=== PATIENT | female | born 1955 | race Caucasian/White ===

== ENCOUNTER → 2017-05-23 17:53 | Outpatient (CLI) | payer MEDICARE ==
[2016-08-29 11:54] VITALS: BMI 29.5
[~2017-05-23 17:53] MED LIST: ACCUPRIL40 MG PO; BAYER CHEWABLE81 MG PO; COREG 3.1253.125 MG PO; CYMBALTA60 MG PO; ISOSORBIDE MONO30 M1 PO; JANUMET 50-1,001 TAB PO; JANUMET XR 50-1 EACH PO; LIPITOR80 MG PO; NITROSTAT0.4 MG SL; NORVASC10 MG PO; PEPCID20 MG PO; PLAVIX75 MG PO; PROTONIX40 MG PO; SYNTHROID125 MCG PO
== END | disposition home or self-care (01) ==
LOC: D.LABREF 17:53
PROVIDERS: Family Medicine
DX: M25.50 Pain in unspecified joint (principal); Z13.9 Encounter for screening, unspecified

== ENCOUNTER → 2017-06-10 13:37 | Outpatient (CLI) | payer MEDICARE ==
[2016-08-29 11:54] VITALS: BMI 29.5
== END | disposition home or self-care (01) ==
LOC: D.US 13:37
DX: I65.23 Occlusion and stenosis of bilateral carotid arteries (principal)

== ENCOUNTER → 2017-06-21 08:49 | Outpatient (CLI) | payer MEDICARE ==
[2016-08-29 11:54] VITALS: BMI 29.5
== END | disposition home or self-care (01) ==
LOC: D.CT 08:49
DX: I73.9 Peripheral vascular disease, unspecified (principal)

== ENCOUNTER → 2018-02-14 10:26 | Outpatient (CLI) | payer MEDICARE ==
[2016-08-29 11:54] VITALS: BMI 29.5
== END | disposition home or self-care (01) ==
LOC: D.US 10:26
DX: M79.605 Pain in left leg (principal); M79.604 Pain in right leg; I73.9 Peripheral vascular disease, unspecified

== ENCOUNTER 2018-06-23 19:00 | Outpatient (CLI) | payer MEDICARE ==
[2016-08-29 11:54] VITALS: BMI 29.5
[2018-07-09] MEDS ORDERED: GLUCOPHAGE1000 MG PO (15:37)
[2018-07-12] MEDS ORDERED: LEVSIN/ANASP0.125 MG PO (09:07)
[2018-07-12] MEDS ORDERED: NAPROXEN250 MG PO (09:09)
== END 2018-06-23 23:59 | disposition home or self-care (01) ==
LOC: D.MAMMO 19:00
DX: Z12.31 Encounter for screening mammogram for malignant neoplasm of breast (principal)

== ENCOUNTER → 2019-07-21 14:42 | Outpatient (CLI) | payer OTHER ==
[2018-07-10 16:23] VITALS: BMI 31.8
[~2019-07-21 14:42] MED LIST changes: +GLUCOPHAGE1000 MG PO; +LEVSIN/ANASP0.125 MG PO; +NAPROXEN250 MG PO; +ULTRAM50 MG PO
== END | disposition home or self-care (01) ==
LOC: D.CT 14:42
PROVIDERS: ATTEND Family Medicine
DX: I65.29 Occlusion and stenosis of unspecified carotid artery (principal)

== ENCOUNTER 2019-08-15 13:04 | Emergency (ER) | payer OTHER ==
[~2019-08-15] VITALS: Ht 165.1 cm; Wt 89.1 kg
[~2019-08-15 13:04] MED LIST changes: -ULTRAM50 MG PO
[2019-08-15 13:17] VITALS: Ht 165.1 cm; Wt 89.1 kg
[2019-08-15] MEDS ORDERED: ULTRAM50 MG PO (13:53)
[2019-08-15 14:09] VITALS: BP 148/72
== END 2019-08-15 14:11 | disposition home or self-care (01) ==
LOC: D.ER 13:04
DX: R10.31 Right lower quadrant pain (principal); M79.604 Pain in right leg; I25.10 Atherosclerotic heart disease of native coronary artery without angina pectoris; E11.9 Type 2 diabetes mellitus without complications; I10 Essential (primary) hypertension

== ENCOUNTER → 2019-10-28 09:01 | Outpatient (CLI) | payer OTHER ==
[2019-08-15 13:17] VITALS: BMI 32.6
[~2019-10-28 09:01] MED LIST changes: +ULTRAM50 MG PO
== END | disposition home or self-care (01) ==
LOC: D.CT 09:01
PROVIDERS: ATTEND Family Medicine
DX: I73.9 Peripheral vascular disease, unspecified (principal)

== ENCOUNTER 2019-11-16 11:16 | Outpatient (CLI) | payer OTHER ==
[~2019-11-16] VITALS: Ht 165.1 cm; Wt 94.5 kg
--- NOTE | ~2019-11-16 | HEMODYNAMI ---
PATIENT:DARLENE BRODERICK MEDICAL RECORD: [id number] : 59 LOCATION:[facility] ADMISSION DATE: 11/16/19 Generatedon:11/16/201914:51 Patient name: DARLENE BRODERICK Patient #: [id number] SSN: [id number] : 1955 Date of study: 11/16/2019 Page: Of Hemodynamic Procedure Report Patient Data Patient Demographics Procedure consent was obtained First Name: DARLENE Gender: Female Last Name: MEGGAN : 1955 [facility] Initial: HARDY Age: 64 year(s) Patient #: [id number] Race: SSN: [id number] Additional ID: [id number] Contact details [address]: [address] [place] [address] State: [place] City: [place] Zip code: [address] Past Medical History Allergies Allergen Reaction Date Comments Reported Penicillins 08/10/2019 Admission Admission Data Admission Date: 11/16/2019 Admission Time: 11:16 Procedure Procedure Types Cath Procedure Peripheral Cath Diagnostic Procedure Orthotic Finish Grinding Technician Peripheral Procedures Jmtgu-Uxwycld-Yzz-Off Peripheral vascular Intervention Stent Stent-Fem/Popw/plasty Procedure Description Procedure Date Procedure Date: 11/16/2019 Procedure Start Time: 14:20 Procedure End Time: 14:46 Procedure Staff Name Function Arceino Canchola MD Performing Physician Ruperto Lawrence RT Monitor Jorge Bowman RN Nurse Radha Bartlett RT Scrub Procedure Data Cath Procedure Fluoroscopy Diagnostic fluoroscopy Total fluoroscopy Time: 5.8 time: 5.8 min min Diagnostic fluoroscopy Total fluoroscopy dose: 301 dose: 301 mGy mGy Contrast Material Contrast Material Type Amount (ml) Isovue 370 87 Entry Location Entry Primary Successful Side Size Upsize Upsize Entry Closure Succes sful Closure Location (Fr) 1 (Fr) 2 (Fr) Remarks Device Remarks Femoral Right 5 Fr 6 Fr 6 Fr Exoseal artery Long Short Estimated blood loss: 10 ml Diagnostic catheters Device Type Used For End Catheter Placement DIAGNOSTIC UF 5Fr Procedure catheter ([id number]) Procedure Complications No complications Procedure Medications Medication Administration Route Dosage Oxygen etCO2 Nasal cannula 2 l/min Lidocaine 2% added to field 20 Heparin Flush Bag added to field 2 bags (1000units/500ml NS) 0.9% NaCl I.V. 100 ml/hr Versed I.V. 2 mg Fentanyl I.V. 100 mcg Heparin Bolus I.V. 4000 units Versed I.V. 1 mg Fentanyl I.V. 50 mcg Versed I.V. 1 mg Hemodynamics Rest Heart Rate: 62 (bpm) Snapshots Pre Cath Intra NCS Post Cath Vital Signs Time Heart Resp SPO2 etCO2 NIBP (mmHg) Rhythm Pain Sedation Rate (ipm) (%) (mmHg) Status Level (bpm) 14:09:24 72 27 97 0 167/78(136) NSR 0 (11) 10(A) , No pain 14:13:44 60 15 96 35.2 128/71(104) NSR 0 (11) 10(A) , No pain 14:17:54 66 17 98 38.2 134/79(102) NSR 0 (11) 10(A) , No pain 14:22:08 62 16 94 36.7 107/63(91) NSR 0 (11) 10(A) , No pain 14:26:24 60 14 95 41.1 114/58(89) NSR 0 (11) 9(A) , No pain 14:30:40 78 10 96 40.4 107/68(81) NSR 0 (11) 9(A) , No pain 14:35:35 91 16 100 41.9 168/89(122) NSR 0 (11) 9(A) , No pain 14:39:57 76 18 100 41.1 153/85(121) NSR 0 (11) 9(A) , No pain 14:44:21 75 12 100 40.4 151/76(116) NSR 0 (11) 9(A) , No pain Medications Time Medication Route Dose Verified Delivered Reason Notes Effectiveness by by 14:12:22 Oxygen etCO2 2 Arcenio Otonielie used for Nasal l/min St Steve Bowman admissions supervisor cannula 14:12:29 Lidocaine 2% added 20ml Arcenio Arcenio for local to vial St Steve Canchola anesthetic field MD [facility] 14:12:37 Heparin Flush added 2 Arcenio Buffie used for Bag to bags St Steve Bowman RN procedure (1000units/500ml field NS) 14:12:49 0.9% NaCl I.V. 100 Arcenio Patel Per physician ml/hr St Steve Bowman RN, MD 14:19:27 Versed I.V. 2 mg Arcenio Patel for sedation St Steve Bowman RN, MD 14:19:34 Fentanyl I.V. 100 Arcenio Patel for sedation mcg [facility] Steve Bowman RN, MD 14:25:01 Fentanyl I.V. 50 Arcenio Patel for sedation mcg St Steve Bowman RN, MD 14:25:55 Versed I.V. 1 mg Arcenio Patel for sedation St tSeve Bowman RN, MD 14:28:49 Heparin Bolus I.V. 4000 Arcenio Patel for verif ied units St Steve Bowman RN anticoagulation with dr MD juárez 14:34:43 Versed I.V. 1 mg Arcenio Frederickie for sedation St Steve Bowman RN, MD Procedure Log Time Note 13:45:35 Jorge Bowman RN sent for patient. Start room use. 13:55:31 Procedure Status Elective Heart Cath (OP). 13:55:37 Time tracking: Regular hours (M-F 7:00 - 5:00) 13:55:47 Plan of Care:Hemodynamics will remain stable., Cardiac rhythm will remain stable., Comfort level will be maintained., Respiratory function will remain adequate., Patient/ family verbilizes understanding of procedure., Procedure tolerated without complication., Recovers from procedure without complications.. 13:57:46 Patient received from Pre/Post Procedure Room to CCL 1 Alert and oriented. Tansferred to table in Supine position. 13:58:14 Signed procedure consent form obtained from patient. 13:58:15 Warm blankets applied, and chiquis hugger turned on for patient comfort. 13:58:16 Correct patient and procedure confirmed by team. 13:58:16 ECG and BP/O2 sat monitors applied to patient. 14:08:08 Vital chart was started 14:08:09 Baseline sample Acquired. 14:08:12 Rhythm: sinus rhythm 14:08:13 Full Disclosure recording started 14:08:54 H&P Date Dictated: 11/16/2019 Within 30 days and on chart., New H&P dictated by physician.. 14:08:55 Pre-procedure instructions explained to patient. 14:08:56 Pre-op teaching completed and patient verbalized understanding. 14:09:00 Family in waiting room. 14:09:02 Patient NPO since Midnight. 14:09:04 Is the patient allergic to Iodine/contrast media? No. 14:09:06 Is patient on blood thinner?No 14:09:08 ACC The patient was administered the following blood thiners within the last 24 hours: None 14:09:10 Patient diabetic? Yes. 14:09:11 If diabetic: On Metformin? No 14:09:14 Previous problem with sedation/anesthesia? No ? 14:09:15 Snore? Yes 14:09:16 Sleep apnea? No 14:09:17 Deviated septum? No 14:09:40 Opens mouth fully? Yes 14:09:41 Sticks out tongue? Yes 14:09:50 Airway obstruction? Yes COPD 14:09:52 Dentures? No ? 14:10:03 Pre procedure: right dorsailis pedis pulse 1+ Palpable, but thready & weak; easily obliterated 14:10:05 Pre procedure: left dorsailis pedis pulse 1+ Palpable, but thready & weak; easily obliterated 14:10:07 Patient pain scale 0/10 ?. 14:10:10 IV patent on arrival in left forearm with 0.9% NaCl at [facility]. 14:10:12 Lab results completed and on chart. 14:10:19 Bilateral groins area was prepped with chlora-prep and draped in sterile fashion 14:10:21 Alarms reviewed by R. N. 14:10:22 Sharps counted by scrub and verified by R.N. 14:10:24 Use device set Femoral Dx 14:10:26 Tegaderm 4 x 4 (1626W) opened to sterile field. 14:10:27 ACIST Manifold (50409) opened to sterile field. 14:10:28 ACIST Hand Control (64905) opened to sterile field. 14:10:29 ACIST Syringe (54071) opened to sterile field. 14:10:30 Bag Decanter (2002S) opened to sterile field. 14:10:30 Medline Cath Pack ([id number]) opened to sterile field. 14:10:35 SHEATH 5FR [place] (MFI533) opened to sterile field. 14:10:35 EMERALD Guide Wire (530-297) opened to sterile field. 14:12:22 Oxygen 2 l/min etCO2 Nasal cannula was administered by Jorge Bowman RN; used for procedure; Verbal order read back and verified. 14:12:29 Lidocaine 2% 20ml vial added to field was administered by Arcenio Canchola MD; for local anesthetic; Verbal order read back and verified. 14:12:37 Heparin Flush Bag (1000units/500ml NS) 2 bags added to field was administered by Jorge Bowman RN; used for procedure; Verbal order read back and verified. 14:12:49 0.9% NaCl 100 ml/hr I.V. was administered by Jorge Bowman RN; Per physician; Verbal order read back and verified. 14:19:17 Physician arrived 14:19:20 --------ALL STOP TIME OUT------ 14:19:21 Final Timeout: patient, procedure, and site verified with staff and physician. All members of the team are in agreement. 14:19:23 Bilateral groins site verified by team. 14:19:27 Versed 2 mg I.V. was administered by Jorge Bowman RN; for sedation; Verbal order read back and verified. 14:19:27 Fire Safety Assessment: A--An alcohol-based skin anteseptic being used preoperatively., C--Open oxygen or nitrous oxide is being used., D--An ESU, laser, or fiber-optic light is being used. 14:19:31 Physical assessment completed. ASA score P 2 - A patient with mild systemic disease as per Arcenio Canchola MD. 14:19:34 Fentanyl 100 mcg I.V. was administered by Jorge Bowman RN; for sedation; Verbal order read back and verified. 14:19:35 Sedation plan: IV Moderate Sedation Medication:Versed, Fentanyl 14:20:12 3b) 30-44 Moderately reduced kidney function. 14:20:23 Maximum allowable contrast dose (3.7 X eGFR X 0.75)111 ml. 14:20:28 Procedure started. 14:20:32 Local anesthetic to right femoral artery with Lidocaine 2% by Arcenio Canchola MD.INITIAL ACCESS ONLY 14:23:01 A 5 Fr sheath was inserted into the Right Femoral artery 14:23:06 A DIAGNOSTIC UF 5Fr catheter ([id number]) was advanced over the wire and used for Procedure. 14:24:50 Abdominal angiogram w/ runoff was performed. 14:24:52 Left leg runoff performed. 14:24:54 Right leg runoff performed. 14:25:01 Fentanyl 50 mcg I.V. was administered by Jorge Bowman RN; for sedation; Verbal order read back and verified. 14:25:55 Versed 1 mg I.V. was administered by Jorge Bowman RN; for sedation; Verbal order read back and verified. 14:28:26 INFLATOR Merit BasixCompak (PJ0012) opened to sterile field. 14:28:26 SHEATH 6FR [place] (IZD498) opened to sterile field. 14:28:27 EXOSEAL 6Fr (EX600) opened to sterile field. 14:28:28 SHEATH 6FR Destination (RSR01) opened to sterile field. 14:28:49 Heparin Bolus 4000 units I.V. was administered by Jorge Bowman RN; for anticoagulation; verified with dr juárez Verbal order read back and verified. 14:28:58 GLIDE WIRE Super Stiff Angled 260cm (KG9283) opened to sterile field. 14:29:18 Glidewire advance around the horn and down the left leg. 14:29:29 Catheter exchanged over wire. 14:29:35 Sheath upsized to a 6 Fr Long. 14:30:39 Sheath advanced around the horn. 14:34:43 Versed 1 mg I.V. was administered by Jorge Bowman RN; for sedation; Verbal order read back and verified. 14:38:11 SMART 6 X 40 X 120 stent ([id number]) was deployed across Mid Superficial Femoral, Left . 14:38:22 Stent catheter was removed intact over wire. 14:39:55 Inflate balloon Inflation number: 1 A POWERFLEX PRO 6.0 X 20 X 135 balloon ([id number]) was prepped and advanced across the Mid Superficial Femoral, Left , then inflated to 10 CODY for 0:10 (min:sec) . 14:42:23 Balloon removed over the wire. 14:43:02 Sheath upsized to a 6 Fr Short. 14:43:23 Wire removed. 14:43:31 Sheath removed intact; hemostasis achieved with Exoseal to the Right Femoral artery. 14:43:36 Procedure ended.(Physican Out) 14:44:37 Fluoroscopy time 05.80 minutes. 14:44:41 Fluoroscopy dose: 301 mGy 14:44:41 Flurop Dose total: 301 14:44:45 Dose Area Product 94923 mGy/cm. 14:44:50 Contrast amount:Isovue 370 87ml. 14:44:53 Maximum allowable dose exceeded? No. 14:44:54 Sharps counted by scrub and verified by R.N. 14:44:55 Insertion/operative site no bleeding no hematoma. 14:44:59 Post-op/insertion site Right Femoral artery dressed using a 4 x 4 and Tegaderm. 14:44:59 Post Procedure Pulses reassessed and unchanged 14:45:02 Post-procedure physical assessment completed. ASA score P 2 - A patient with mild systemic disease as per Arcenio Canchola MD. 14:45:04 Post procedure rhythm: unchanged. 14:45:06 Estimated blood loss: 10 ml 14:45:09 Post procedure instruction explained to patient.Patient verbalizes understanding. 14:45:10 Patient needs reinforcement of post procedure teaching. 14:45:10 Procedure and supply charges have been captured, reviewed, submitted and are correct. 14:45:30 Procedure type changed to Cath procedure, Peripheral Cath Diagnostic Procedure, Orthotic Finish Grinding Technician Peripheral Procedures, Gtfor-Hcqzqlx-Tru-Off, Peripheral vascular Intervention, Stent, Stent-Fem/Popw/plasty 14:45:37 Procedure Complication : No complications 14:46:12 Vital chart was stopped 14:46:15 AFRO Findings: PVD: HAZ TECH performed (see procedure notes) 14:46:16 See physician's report for complete and final results. 14:46:16 Operative report dictated upon procedure completion. 14:46:22 Report given to Pre/Post Procedure Room. 14:46:25 Patient transfered to Pre/Post Procedure Room with Stretcher. 14:46:28 Procedure ended. 14:46:28 Full Disclosure recording stopped 14:47:31 ACT drawn and resulted at 230 seconds. (normal therapeutic range 180-240 seconds). 14:48:40 End room use (Document Last) 14:49:03 End room use (Document Last) 14:50:26 End room use (Document Last) Intervention Summary Intervention Notes Time ActionType Lesion and Equipment Action# Pressure Duration Attributes Used 14:38:11 Deploy self Mid SMART 6 X 1 expanding Superficial 40 X 120 stent Femoral, stent Left ([id number]) 14:39:55 Inflate Mid POWERFLEX 1 10 00:10 balloon Superficial PRO 6.0 X Femoral, 20 X 135 Left balloon ([id number]) Device Usage Item Name Manufacture Quantity Catalog Hospital Part Current Minimal L ot# / Number Charge Number Stock Stock Serial# Code Tegaderm 4 3M 1 1626W [id number] 585907 988581 5 x 4 (1626W) ACIST Acist 1 52851 638019 708635 162986 5 Manifold Medical (56724) Systems Inc ACIST Hand Acist 1 81730 651259 825401 448776 5 Control Medical (01526) Systems Inc ACIST Acist 1 64003 012164 604131 576847 20 Syringe Medical (26835) Systems Inc Bag Microtek 1 2001S 542089 03513 656507 5 Decanter Medical Inc. (2001S) Medline Medline 1 [id number] 479202 31601 356253 5 Cath Pack ([id number]) SHEATH 5FR Terumo 1 MUF327 809497 634654 777049 5 [place] (EMC524) EMERALD Cardinal 1 502-455 547709 901218 793620 5 Guide Wire Health (502-455) DIAGNOSTIC Cardinal 1 814825D3 951401 212269 022032 10 UF 5Fr Health catheter (363928M5) INFLATOR Merit 1 GJ7352 724328 593067 100536 15 [facility] Medical BasixCompak (VF0827) SHEATH 6FR Terumo 1 XUB180 745110 872233 945457 40 [place] (PCU791) EXOSEAL 6Fr Cardinal 1 EX600 826438 543088 701055 10 (EX600) Health SHEATH 6FR Terumo 1 RSR01 001513 34126 858782 5 Destination (RSR01) GLIDE WIRE Terumo 1 UC7229 673962 176020 412502 5 Super Stiff Angled 260cm (CF7412) SMART 6 X Cardinal 1 [id number] 842740 135426 415736 0 1 [id number] 40 X 120 Health stent ([id number]) POWERFLEX Cardinal 1 [id number] 106762 587041 480843 5 PRO 6.0 X Health 20 X 135 balloon ([id number]) Signature Audit [place] Stage Time Signature Unsigned Intra-Procedure 11/16/2019 Ruperto Lawrence 2:49:03 PM RT(R) Intra-Procedure 11/16/2019 Jorge Bowman RN 2:50:26 PM Intra-Procedure 11/16/2019 Arcenio Curiel 2:51:06 PM Steve [facility] [address] [place] [address]
[2019-11-16] MEDS ORDERED: GLUCOTROL XL 1010 MG PO (11:41)
[2019-11-16] MEDS ORDERED: ZOLOFT100 MG PO (11:44)
[2019-11-16] MEDS ORDERED: TIROSINT137 MCG PO (11:45)
[2019-11-16] MEDS ORDERED: ATARAX 25 MG TA25 MG PO (11:46)
[2019-11-16 11:51] VITALS: BP 171/62; Ht 165.1 cm; Wt 94.5 kg
[2019-11-16 12:02] LABS: BASOPHILS 0.3 % (0-2); EOSINOPHILS 3.3 % (0-7); HEMOGLOBIN 11.9 g/dL (12-16); IMMATURE GRANULOCYTES 0.4 % (0-5); LYMPHOCYTES 14.5 % (15-50); MCH 28.2 pg (26.0-34.0); MCHC 33.1 g/dL (31.0-37.0); MCV 85.3 fL (80.0-100.0); MEAN PLATELET VOLUME 9.4 fL (7.4-10.4); MONOCYTES 7.9 % (2-11); NEUTROPHILS 73.6 % (40-80); RBC 4.22 10x6/uL (4.00-5.40); RDW 13.1 % (11.5-14.5); WBC 6.7 10x3/uL (4.8-10.8)
[2019-11-16 12:04] LABS: PLATELET COUNT 207 10x3/uL (130-400)
[2019-11-16 12:17] LABS: ANION GAP 13.9 mmol/L (8-16); CALCIUM 8.8 mg/dL (8.5-10.1); CARBON DIOXIDE 25.5 mmol/L (21.0-32.0); CREATININE - SERUM 1.4 mg/dL (0.6-1.3); POTASSIUM - SERUM 4.4 mmol/L (3.5-5.1)
--- NOTE | 2019-11-16 15:08 | HP ---
PATIENT: DARLENE BRODERICK MEDICAL RECORD: [id number] ACCOUNT: [id number] LOCATION:[facility] : 59 ADMISSION DATE: 11/16/19 PCP: CONCHA ANTHONY DO HISTORY AND PHYSICAL EXAMINATION HISTORY OF PRESENT ILLNESS: A 64-year-old lady well known to me with history of coronary artery disease, status post intervention, has been managed with a combination of beta blockade and long-acting nitrates and more recently has been having severe lifestyle coronary claudication, found to have significant disease via CTA, was brought in for a possible intervention. PAST MEDICAL HISTORY: 1. History of hypertension. 2. Hyperlipidemia. 3. Coronary artery disease as described above. 4. Diabetes mellitus. PHYSICAL EXAMINATION: GENERAL: Pleasant female, in no acute distress. NECK: No JVD or bruit. HEART: Regular. LUNGS: Acevedo clear. ABDOMEN: Soft, nontender. EXTREMITIES: Pulses are decreased bilaterally. No edema. IMPRESSION: Severe lifestyle limiting claudication and known diabetic, angiography, intervention based on the above. TRANSINT:[id number] Voice Confirmation ID: [id number] DOCUMENT ID: [id number] INGRID RAZA MD at 1508 CC: [id number] DICTATION DATE: 11/16/19 1311 STEAMBLASTER: 11/16/19 1412 REG [facility] [address] [place] [address]
--- NOTE | 2019-11-16 15:12 | NUR ---
PT ARRIVED BY STRETCHER. PLACED ON MONITORS. IN SUPINE POSITION. FAMILY AT BEDSIDE. VSS.
--- NOTE | 2019-11-16 15:30 | NUR ---
RIGHT GROIN DRESSING C/D/I. NO S/S OF HEMATOMA NOTED. CALL LIGHT WITHIN REACH. FAMILY AT BEDSIDE. VSS AT THIS TIME.
--- NOTE | 2019-11-16 16:00 | NUR ---
RIGHT GROIN DRESSING C/D/I. NO S/S OF HEMATOMA NOTED. CALL LIGHT WITHIN REACH. VSS AT THIS TIME. FAMILY AT BEDSIDE. NO NEEDS AT THIS TIME.
--- NOTE | 2019-11-16 16:35 | NUR ---
RIGHT GROIN DRESSING C/D/I. NO S/S OF HEMATOMA NOTED. CALL LIGHT WITHIN REACH. VSS. FAMILY AT BEDSIDE.
--- NOTE | 2019-11-16 17:00 | NUR ---
PT RESTING COMFORTABLY. VSS. RIGHT GROIN DRESSING C/D/I. NO S/S OF HEMATOMA NOTED. CALL LIGHT WITHIN REACH. FAMILY AT BEDSIDE. NO NEEDS AT THIS TIME.
--- NOTE | 2019-11-16 17:30 | NUR ---
RIGHT GROIN DRESSING C/D/I. NO S/S OF HEMATOMA NOTED. CALL LIGHT WITHIN REACH. FAMILY AT BEDSIDE. VSS.
--- NOTE | 2019-11-16 18:00 | NUR ---
HEAD OF BED INC TO 30 DEGREES. TOLERATED WELL. RIGHT GROIN DRESSING C/D/I. NO S/S OF HEMATOMA NOTED. CALL LIGHT WITHIN REACH. FAMILY AT BEDSIDE. PT SET UP WITH SANDWICH TRAY AND DRINK. DENIES NAUSEA/PAIN AT THIS TIME.
--- NOTE | 2019-11-16 18:45 | NUR ---
RIGHT GROIN DRESSING C/D/I. NO S/S OF HEMATOMA NOTED. PIV D/C'D WITH CATH TIP INTACT. TOLERATED WELL. DISCUSSED DISCHARGE INSTRUCTIONS WITH PT AND PT'S FAMILY. THEY VOICED UNDERSTANDING. PT INSTRUCTED TO GET UP AND DRESSED. FAMILY AT BEDSIDE TO ASSIST. CALL LIGHT WITHIN REACH.
--- NOTE | 2019-11-16 19:00 | NUR ---
PT AMBULATED TO RESTROOM. VOIDED WITHOUT DIFFICULTY. PT TAKEN OUT TO VEHICLE BY WHEELCHAIR. NO S/S OF DISTRESS NOTED. ALL BELONGINGS AND PAPERWORK IN HAND.
--- NOTE | 2019-11-18 10:02 | OP ---
PATIENT NAME: DARLENE BRODERICK MEDICAL RECORD: [id number] :[birth year] LOCATION:D.CAT ADMISSION DATE: SURGEON: INGRID RAZA MD DATE OF OPERATION: 11/16/2019 PROCEDURES: AFRO and TAR HEATER. CATHETER: #5 [place] sheath, 6 long Arrow sheath, Glidewire, and JONE catheter. FINDINGS: The catheter placed at the level of the renal arteries and abdominal aortogram was performed that showed no dissection. No significant aneurysmal dilatation. Nonselective films of the renal artery showed no significant renal artery stenosis. Left lower extremity: Left iliac system, common external and internal, show calcification along several areas but no significant intraluminal stenosis. Left femoral system, deep and common, no significant stenosis. Left superficial femoral at its mid portion shows about 90% fairly discrete stenosis. There is a good 3-vessel runoff. Right lower extremity: Right common internal and external iliacs, relatively free of disease. The femoral system, the left superficial femoral shows a discrete proximal 80% stenosis but then distally has this prolonged 80% stenosis, probably close to 100 mm in length but still with 3-vessel runoff. ASSESSMENT AND PLAN: Intervention to the left superficial femoral today with a stent to the right at a later date. DESCRIPTION OF PROCEDURE: After the glidewire was placed through the 80% to 90% stenosed left superficial femoral area, stent deployed was a 6.0 x 40 mm SMART stent. Post-deployment balloon was a 6.0 x 20 mm ballooned up to 14 atmospheres. This showed excellent resolution to no significant residual and improved distal 3-vessel runoff. Sheath was closed to ExoSeal device. Plavix was loaded in the lab. TRANSINT:[id number] Voice Confirmation ID: [id number] DOCUMENT ID: [id number] INGRID RAZA MD at 1002 CC: [id number] DICTATION DATE: 11/16/19 1454 SYSTEMS INTEGRATOR: 11/16/19 2146 DEP CLI 11/16/[address] [address]
== END 2019-11-16 19:00 | disposition home or self-care (01) ==
LOC: D.CATH 11:16
PROVIDERS: ATTEND Internal Medicine Interventional Cardiology
DX: I73.9 Peripheral vascular disease, unspecified (principal); I25.10 Atherosclerotic heart disease of native coronary artery without angina pectoris; E78.5 Hyperlipidemia, unspecified; R01.1 Cardiac murmur, unspecified; K21.9 Gastro-esophageal reflux disease without esophagitis; E11.9 Type 2 diabetes mellitus without complications; I10 Essential (primary) hypertension; Z79.84 Long term (current) use of oral hypoglycemic drugs

== ENCOUNTER 2019-11-24 11:23 | Outpatient (CLI) | payer OTHER ==
[~2019-11-24] VITALS: Ht 165.1 cm; Wt 94.1 kg
--- NOTE | ~2019-11-24 | HEMODYNAMI ---
PATIENT:DARLENE BRODERICK MEDICAL RECORD: [id number] : 59 LOCATION:[facility] ADMISSION DATE: 11/24/19 Generatedon:11/24/201914:07 Patient name: DARLENE BRODERICK Patient #: [id number] SSN: [id number] : 1955 Date of study: 11/24/2019 Page: Of Hemodynamic Procedure Report Patient Data Patient Demographics Procedure consent was obtained First Name: DARLENE Gender: Female Last Name: MEGGAN : 1955 [facility] Initial: HARDY Age: 64 year(s) Patient #: [id number] Race: SSN: [id number] Additional ID: [id number] Contact details Address: [address] [place] [address] State: [place] City: [place] Zip code: [address] Past Medical History Allergies Allergen Reaction Date Comments Reported Penicillins 08/10/2019 Other allergy 11/24/2019 pcn Admission Admission Data Admission Date: 11/24/2019 Admission Time: 11:23 Arrival Date: 11/24/2019 Arrival Time: 13:30 Admit Source: Other Insurance Payor: Private health insurance [facility] #: [id number] Height (in.): 64.96 BSA: 2.01 (m2) Height (cm.): 165 BMI: 34.53 (kg/m2) Weight (lbs.): 207.24 Weight (kg.): 94 Lab Results Lab Result Date: 11/24/2019 Lab Result Time: 0:00 Biochemistry Name Units Result Min Max BUN mg/dl 23 --(----)-* 7 18 Creatinine mg/dl 1.3 --(---*)-- 0.6 1.3 eGFR ml/min 44 *-(----)-- 90 120 NONAFRICAN CBC Name Units Result Min Max Hemoglobin g/dl 11.1 *-(----)-- 13.5 17.5 Procedure Procedure Types Cath Procedure PCI Procedure Hemochron ACT Test Peripheral vascular Intervention Stent Stent-Fem/Popw/plasty Procedure Description Procedure Date Procedure Date: 11/24/2019 Procedure Start Time: 13:09 Procedure End Time: 14:00 Procedure Staff Name Function Arcenio Canchola MD Performing Physician Aym Santana RT Monitor Renetta White RT Scrub Noah Arroyo RN Nurse Indication Angina Procedure Data Cath Procedure Fluoroscopy Diagnostic fluoroscopy Total fluoroscopy Time: time: 15.8 min 15.8 min Diagnostic fluoroscopy Total fluoroscopy dose: 445 dose: 445 mGy mGy Contrast Material Contrast Material Type Amount (ml) Isovue 300 74 Entry Location Entry Primary Successful Side Size Upsize Upsize Entry Closure Succes sful Closure Location (Fr) 1 (Fr) 2 (Fr) Remarks Device Remarks Femoral Left 6 Fr 6 Fr 6 Fr Exoseal artery Short Long Short Estimated blood loss: 5 ml Diagnostic catheters Device Type Used For End Catheter Placement DIAGNOSTIC IM 5Fr Multi-vessel catheter ([id number]) Angiography Procedure Complications No complications Procedure Medications Medication Administration Route Dosage 0.9% NaCl I.V. 100 ml/hr Oxygen etCO2 Nasal cannula 2 l/min Heparin Flush Bag added to field 2 bags (1000units/500ml NS) Lidocaine 2% added to field 20 Versed I.V. 2 mg Fentanyl I.V. 100 mcg Versed I.V. 1 mg Heparin Bolus I.V. 5000 units Versed I.V. 1 mg Fentanyl I.V. 50 mcg Hemodynamics Rest BSA: 2.01 (m2) HGB: 11.1 (g/dl) O2 Consumption: Estimated: 183.38 (ml/min) O2 Co nsumption indexed: Estimated:91.23 (ml/min/m) Heart Rate: 62 (bpm) Snapshots Pre Cath Intra NCS Post Cath Vital Signs Time Heart Resp SPO2 etCO2 NIBP (mmHg) Rhythm Pain Sedation Rate (ipm) (%) (mmHg) Status Level (bpm) 13:01:48 67 22 98 34.8 166/81(134) NSR 0 (11) 10(A) , No pain 13:06:10 63 14 98 27.2 136/75(121) NSR 0 (11) 10(A) , No pain 13:10:20 72 14 96 42.4 147/86(118) NSR 0 (11) 10(A) , No pain 13:14:40 72 11 97 28 128/68(80) NSR 0 (11) 10(A) , No pain 13:18:50 71 11 96 41.6 126/75(93) NSR 0 (11) 10(A) , No pain 13:23:57 72 15 97 40.1 145/78(114) NSR 0 (11) 10(A) , No pain 13:28:15 71 15 97 39.3 135/71(117) NSR 0 (11) 10(A) , No pain 13:32:29 72 16 97 38.6 134/74(97) NSR 0 (11) 10(A) , No pain 13:36:43 70 17 97 36.3 136/73(114) NSR 0 (11) 10(A) , No pain 13:40:59 67 18 97 38.6 134/70(109) NSR 0 (11) 9(A) , No pain 13:45:15 66 19 97 37.9 126/67(106) NSR 0 (11) 9(A) , No pain 13:49:29 66 16 97 38.6 130/67(106) NSR 0 (11) 9(A) , No pain 13:53:43 65 16 97 36.3 124/66(103) NSR 0 (11) 10(A) , No pain 13:57:53 61 18 98 37.9 136/77(105) NSR 0 (11) 10(A) , No pain Medications Time Medication Route Dose Verified Delivered Reason Notes Effectiveness by by 13:04:28 0.9% NaCl I.V. 100 Noah Noah Per physician ml/hr Dina Arroyo RN RN 13:04:40 Oxygen etCO2 2 Noah Noah for low 02 sats Nasal l/min Dina Arroyo cannula RN RN 13:04:50 Heparin Flush added 2 Noah Noah used for Bag to bags Dina Arroyo procedure (1000units/500ml field RAMEY RN NS) 13:04:59 Lidocaine 2% added 20ml Noah Noah for local to vial Dina Arroyo anesthetic field KAROLINE RAMEY 13:05:08 Versed I.V. 2 mg Noah Noah for sedation Dina Arroyo RN, RN 13:05:19 Fentanyl I.V. 100 Noah Noah for sedation [facility] Dina Arroyo RN RN 13:09:35 Versed I.V. 1 mg Noah Noah for sedation Dina Arroyo RN RN 13:25:32 Heparin Bolus I.V. 5000 Noah Noah for units Dina Arroyo anticoagulation RN RN 13:43:21 Versed I.V. 1 mg Noah Noah for sedation Dina Arroyo RN RN 13:56:34 Fentanyl I.V. 50 Noah Noah for sedation mcg Dina Arroyo RN client resource specialist Log Time Note 12:47:02 Diagnostic Cath Status : Elective 12:49:15 Informed consent obtained and on chart 12:50:10 Admit Source: Other 12:50:18 Arrival Date: 11/24/2019 1:30:00 PM 12:50:37 Insurance Payor : Private health insurance 12:51:03 Patient Height : 64.96 inches 12:51:07 Patient Weight : 207.24 lbs 12:51:58 Lab Result : BUN 23 mg/dl 12:51:58 Lab Result : Creatinine 1.3 mg/dl 12:51:58 Lab Result : eGFR NONAFRICAN 44 ml/min 12:51:58 Lab Result : Hemoglobin 11.1 g/dl 12:52:15 Indication : Angina 12:52:21 Renetta KEENAN(R) sent for patient. Start room use. 12:52:23 Time tracking: Regular hours (M-F 7:00 - 5:00) 12:52:44 Patient received from Pre/Post Procedure Room to CCL 2 Alert and oriented. Tansferred to table in Supine position. 12:52:46 Warm blankets applied, and chiquis hugger turned on for patient comfort. 12:52:46 Correct patient and procedure confirmed by team. 12:52:46 ECG and BP/O2 sat monitors applied to patient. 13:00:34 Vital chart was started 13:00:35 Baseline sample Acquired. 13:00:38 Rhythm: sinus rhythm 13:00:39 Full Disclosure recording started 13:00:44 H&P Date Dictated: 11/24/2019 Within 30 days and on chart., H&P Addendum completed by physician on day of procedure. (MUST COMPLETE FOR ALL OUTPATIENTS). 13:00:45 Pre-procedure instructions explained to patient. 13:00:45 Pre-op teaching completed and patient verbalized understanding. 13:00:46 Family in patients room. 13:00:48 Patient NPO since Midnight. 13:01:00 Patient allergic to Other allergypcn 13:01:41 Is the patient allergic to Iodine/contrast media? No. 13:01:42 Was the patient premedicated? No 13:01:44 Is patient on blood thinner?Yes 13:01:46 ACC The patient was administered the following blood thiners within the last 24 hours: ACCPlavix 13:01:47 Patient diabetic? Yes. 13:01:48 If diabetic: On Metformin? No 13:01:51 Previous problem with sedation/anesthesia? No ? 13:01:53 Snore? Yes 13:01:53 Sleep apnea? No 13:01:54 Deviated septum? No 13:01:55 Opens mouth fully? Yes 13:01:56 Sticks out tongue? Yes 13:01:57 Airway obstruction? No ? 13:02:00 Dentures? No ? 13:02:04 Pre procedure: right dorsailis pedis pulse 1+ Palpable, but thready & weak; easily obliterated 13:02:14 Pre procedure: left dorsailis pedis pulse 1+ Palpable, but thready & weak; easily obliterated 13:02:16 Patient pain scale 0/10 ?. 13:02:22 IV patent on arrival in left forearm with 0.9% NaCl at O. 13:02:25 Lab results completed and on chart. 13:02:36 Bilateral groins area was prepped with chlora-prep and draped in sterile fashion 13:02:37 Alarms reviewed by R. N. 13:02:38 Sharps counted by scrub and verified by R.N. 13:02:38 Physician arrived 13:02:39 --------ALL STOP TIME OUT------ 13:02:40 Final Timeout: patient, procedure, and site verified with staff and physician. All members of the team are in agreement. 13:02:42 Bilateral groins site verified by team. 13:02:45 Fire Safety Assessment: A--An alcohol-based skin anteseptic being used preoperatively., C--Open oxygen or nitrous oxide is being used., D--An ESU, laser, or fiber-optic light is being used. 13:02:48 Physical assessment completed. ASA score P 2 - A patient with mild systemic disease as per Arcenio Canchola MD. 13:02:55 3b) 30-44 Moderately reduced kidney function. 13:03:36 Maximum allowable contrast dose (3.7 X eGFR X 0.75)122 ml. 13:03:40 Sedation plan: IV Moderate Sedation Medication:Versed, Fentanyl 13:04:28 0.9% NaCl 100 ml/hr I.V. was administered by Noah Arroyo RN; Per physician; Verbal order read back and verified. 13:04:40 Oxygen 2 l/min etCO2 Nasal cannula was administered by Noah Arroyo RN; for low 02 sats; Verbal order read back and verified. 13:04:50 Heparin Flush Bag (1000units/500ml NS) 2 bags added to field was administered by Noah Arroyo RN; used for procedure; Verbal order read back and verified. 13:04:59 Lidocaine 2% 20ml vial added to field was administered by Noah Arroyo RN; for local anesthetic; Verbal order read back and verified. 13:05:02 Use device set CATH PACK 13:05:03 ACIST Syringe (14384) opened to sterile field. 13:05:04 ACIST Hand Control (56855) opened to sterile field. 13:05:04 ACIST Manifold (90884) opened to sterile field. 13:05:05 Medline Cath Pack ([id number]) opened to sterile field. 13:05:06 Bag Decanter (2002S) opened to sterile field. 13:05:07 EMERALD Guide Wire (302-330) opened to sterile field. 13:05:08 Versed 2 mg I.V. was administered by Noah Arroyo RN; for sedation; Verbal order read back and verified. 13:05:19 Fentanyl 100 mcg I.V. was administered by Noah Arroyo RN; for sedation; Verbal order read back and verified. 13:05:32 GLIDE WIRE Super Stiff Angled 260cm ([id number]) opened to sterile field. 13:05:33 SHEATH 6FR Rupert (KNJ079) opened to sterile field. 13:07:27 Zero performed for pressure channel P1 13:07:38 Zero performed for pressure channel P1 13:07:44 Zero performed for pressure channel P1 13:09:35 Versed 1 mg I.V. was administered by Noah Arroyo RN; for sedation; Verbal order read back and verified. 13:09:51 Procedure started. 13:09:55 Local anesthetic to left femerol artery with Lidocaine 2% by Arcenio Canchola MD.INITIAL ACCESS ONLY 13:12:20 A 6 Fr Short sheath was inserted into the Left Femoral artery 13:12:34 A DIAGNOSTIC IM 5Fr catheter ([id number]) was advanced over the wire and used for Multi-vessel Angiography. 13:14:27 Right leg runoff performed. 13:14:38 Injector settings: Ml/sec: 5, Volume: 15, 13:15:27 glide wire advanced. 13:17:21 TORQUE DEVICE PLASTIC .038 ( TD01) opened to sterile field. 13:23:53 SHEATH 6FR ARROW 45cm (CL-94416) opened to sterile field. 13:24:03 Sheath upsized to a 6 Fr Long. 13:25:32 Heparin Bolus 5000 units I.V. was administered by Noah Arroyo RN; for anticoagulation; Verbal order read back and verified. 13:29:18 CHOICE PT Extra Support J 300cm guide wire ([id number]) opened to sterile field. 13:30:11 Wire removed. 13:30:27 choice pt extra support wire advanced. 13:30:31 Wire advanced across lesion. 13:33:55 Inflate balloon Inflation number: 1 A POWERFLEX PRO 5.0 X 80 X 135 balloon ([id number]) was prepped and advanced across the Mid Superficial Femoral, Right 90, then inflated to 12 CODY for 0:30 (min:sec) 0. 13:34:04 Balloon removed over the wire. 13:36:09 Inflate balloon Inflation number: 2 A POWERFLEX PRO 4.0 X 80 X 135 balloon ([id number]) was prepped and advanced across the Mid Superficial Femoral, Right 80, then inflated to 12 CODY for 0:30 (min:sec) 0. 13:37:44 Inflation number: 3 The POWERFLEX PRO 4.0 X 80 X 135 balloon ([id number]) was reinflated across the Mid Superficial Femoral, Right 80, to 14 CODY for 0:30 (min:sec) . 13:38:42 Balloon removed over the wire. 13:43:21 Versed 1 mg I.V. was administered by Noah Arroyo RN; for sedation; Verbal order read back and verified. 13:43:44 SMART Flex 5 X 120 X 120 stent ([id number]) was deployed across Mid Superficial Femoral, Right . 13:43:55 Stent catheter was removed intact over wire. 13:49:47 SMART Flex 5 X 100 X 120 stent ([id number]) was deployed across Mid Superficial Femoral, Right . 13:49:52 Stent catheter was removed intact over wire. 13:51:38 Inflation number: 4 The POWERFLEX PRO 5.0 X 80 X 135 balloon ([id number]) was reinflated across the Mid Superficial Femoral, Right , to 14 CODY for 0:30 (min:sec) . 13:52:39 Inflation number: 5 The POWERFLEX PRO 5.0 X 80 X 135 balloon ([id number]) was reinflated across the Mid Superficial Femoral, Right , to 14 CODY for 0:30 (min:sec) . 13:53:19 Inflation number: 6 The POWERFLEX PRO 5.0 X 80 X 135 balloon ([id number]) was reinflated across the Mid Superficial Femoral, Right , to 14 CODY for 0:30 (min:sec) . 13:53:51 Inflation number: 7 The POWERFLEX PRO 5.0 X 80 X 135 balloon ([id number]) was reinflated across the Mid Superficial Femoral, Right , to 14 CODY for 0:30 (min:sec) . 13:54:49 Balloon removed over the wire. 13:54:53 Wire removed. 13:55:05 Sheath upsized to a 6 Fr Short. 13:55:14 EXOSEAL 6Fr (EX600) opened to sterile field. 13:55:34 Sheath removed intact; hemostasis achieved with Exoseal to the Left Femoral artery. 13:56:34 Fentanyl 50 mcg I.V. was administered by Noah Arroyo RN; for sedation; Verbal order read back and verified. 13:57:16 Procedure ended.(Physican Out) 13:57:27 Fluoroscopy time 15.80 minutes. 13:57:31 Flurop Dose total: 445 13:57:31 Fluoroscopy dose: 445 mGy 13:57:43 Dose Area Product 13591 mGy/cm. 13:58:39 Contrast amount:Isovue 300 74ml. 13:59:15 Maximum allowable dose exceeded? No. 13:59:16 Sharps counted by scrub and verified by R.N. 13:59:17 Insertion/operative site no bleeding no hematoma. 13:59:41 Post-op/insertion site Left Femoral artery dressed using a 4 x 4 and Tegaderm. 13:59:42 Post Procedure Pulses reassessed and unchanged 13:59:47 Post procedure rhythm: unchanged. 13:59:49 Estimated blood loss: 5 ml 13:59:51 Post procedure instruction explained to patient.Patient verbalizes understanding. 13:59:51 Patient needs reinforcement of post procedure teaching. 14:00:16 Procedure and supply charges have been captured, reviewed, submitted and are correct. 14:00:21 Procedure Complication : No complications 14:00:24 Vital chart was stopped 14:00:29 AFRO Findings: PVD: MOBILE ELECTRONICS INSTALLER performed (see procedure notes) 14:00:31 Operative report dictated upon procedure completion. 14:00:31 See physician's report for complete and final results. 14:00:37 Report given to Pre/Post Procedure Room. 14:00:39 Patient transfered to Pre/Post Procedure Room with Stretcher. 14:00:42 Procedure ended. 14:00:42 Full Disclosure recording stopped 14:00:50 ACC-PCI Only Patient was given prescriptions, or instructed by Arcenio Canchola MD to start/continue the following medications upon discharge: Plavix 14:00:52 End room use (Document Last) 14:01:36 ACT drawn and resulted at 251 seconds. (normal therapeutic range 180-240 seconds). 14:04:43 Insertion/operative site no bleeding no hematoma. 14:05:08 Insertion/operative site no bleeding no hematoma. Intervention Summary Intervention Notes Time ActionType Lesion and Equipment Action# Pressure Duration Attributes Used 13:33:55 Inflate Mid POWERFLEX 1 12 00:30 balloon Superficial PRO 5.0 X Femoral, 80 X 135 Right balloon ([id number]) 13:36:09 Inflate Mid POWERFLEX 2 12 00:30 balloon Superficial PRO 4.0 X Femoral, 80 X 135 Right balloon ([id number]) 13:37:44 Reinflate Mid POWERFLEX 3 14 00:30 balloon Superficial PRO 4.0 X Femoral, 80 X 135 Right balloon ([id number]) 13:43:44 Deploy self Mid SMART Flex 1 expanding Superficial 5 X 120 X stent Femoral, 120 stent Right ([id number]) 13:49:47 Deploy self Mid SMART Flex 1 expanding Superficial 5 X 100 X stent Femoral, 120 stent Right ([id number]) 13:51:38 Reinflate Mid POWERFLEX 4 14 00:30 balloon Superficial PRO 5.0 X Femoral, 80 X 135 Right balloon ([id number]) 13:52:39 Reinflate Mid POWERFLEX 5 14 00:30 balloon Superficial PRO 5.0 X Femoral, 80 X 135 Right balloon ([id number]) 13:53:19 Reinflate Mid POWERFLEX 6 14 00:30 balloon Superficial PRO 5.0 X Femoral, 80 X 135 Right balloon ([id number]) 13:53:51 Reinflate Mid POWERFLEX 7 14 00:30 balloon Superficial PRO 5.0 X Femoral, 80 X 135 Right balloon ([id number]) Device Usage Item Name Manufacture Quantity Catalog Number Hospital Part Current Minim al Lot# / Charge Number Stock Stock Serial# Code ACIST Acist 1 50787 455681 452378 578767 20 Syringe Medical (18095) Systems Inc ACIST Hand Acist 1 19562 398946 145254 792904 5 Control Medical (20806) Systems Inc ACIST Acist 1 36194 390175 521638 703876 5 Manifold Medical (17490) Systems Inc Medline Medline 1 [id number] 366715 33822 605900 5 Cath Pack ([id number]) Bag Microtek 1 2001S 173424 28871 671355 5 DecBigMachines Medical Inc. () EMERALD Cardinal 1 502-455 711056 447540 454629 5 Guide Wire Health (502-455) GLIDE WIRE Terumo 1 GU1171 973024 874166 261533 5 Super Stiff Angled 260cm (JL1067) SHEATH 6FR Terumo 1 TRR185 540307 711205 608916 40 Rupert (COS336) DIAGNOSTIC Cardinal 1 [id number] 751312 069709 187075 5 IM 5Fr Health catheter ([id number]) TORQUE [place] 1 TD01 384196 195093 347709 5 DEVICE Scientific PLASTIC .038 ( TD01) SHEATH 6FR Teleflex 1 CL-18096 197609 204846 443744 5 ARROW 45cm (CL-24345) CHOICE PT [place] 1 [id number] 476805 673682 831661 5 Extra Scientific Support J 300cm guide wire (1977922Z1) POWERFLEX Cardinal 1 [id number] 633821 709671 783133 5 PRO 5.0 X Health 80 X 135 balloon ([id number]) POWERFLEX Cardinal 1 [id number] 531946 956785 905953 5 PRO 4.0 X Health 80 X 135 balloon ([id number]) SMART Flex Cardinal 1 [id number] 384496 333845 913927 0 192442 5 X 120 X Health 120 stent ([id number]) SMART Flex Cardinal 1 [id number] 343995 146209 487189 0 952872 5 X 100 X Health 120 stent ([id number]) EXOSEAL 6Fr Cardinal 1 EX600 411991 305035 312334 10 (EX600) Health Signature Audit [place] Stage Time Signature Unsigned Intra-Procedure 11/24/2019 Amy Santana 2:04:43 PM RT(R) Intra-Procedure 11/24/2019 Noah 2:05:08 PM Dina RAMEY Intra-Procedure 11/24/2019 Arcenio Curiel 2:07:39 PM Steve SOSA Signatures Performing Physician : Signature : Arcenio Canchola MD Date : Time : Monitor : Amy Santana RT Signature : Date : Time : Nurse : Noah Arroyo Signature : RN Date : Time : [facility] [address] [place] [address]
[~2019-11-24 11:23] MED LIST changes: +ATARAX 25 MG TA25 MG PO; +GLUCOTROL XL 1010 MG PO; +TIROSINT137 MCG PO; +ZOLOFT100 MG PO
[2019-11-24 11:48] VITALS: BP 155/65; Ht 165.1 cm; Wt 94.1 kg
[2019-11-24 11:58] LABS: BASOPHILS 0.6 % (0-2); EOSINOPHILS 3.9 % (0-7); HEMATOCRIT 34.5 % (36.0-48.0); HEMOGLOBIN 11.1 g/dL (12-16); IMMATURE GRANULOCYTES 0.4 % (0-5); MCHC 32.2 g/dL (31.0-37.0); MCV 86.9 fL (80.0-100.0); MEAN PLATELET VOLUME 9.2 fL (7.4-10.4); MONOCYTES 7.4 % (2-11); NEUTROPHILS 70.7 % (40-80); PLATELET COUNT 185 10x3/uL (130-400); RBC 3.97 10x6/uL (4.00-5.40); RDW 13.4 % (11.5-14.5); WBC 5.4 10x3/uL (4.8-10.8)
[2019-11-24 12:06] LABS: ANION GAP 10.7 mmol/L (8-16); CALCIUM 8.5 mg/dL (8.5-10.1); CARBON DIOXIDE 27.8 mmol/L (21.0-32.0); CREATININE - SERUM 1.3 mg/dL (0.6-1.3); POTASSIUM - SERUM 4.5 mmol/L (3.5-5.1)
[2019-11-24 13:37] LABS: CHOL - HDL RATIO 3.1 ratio (2.3-4.1); LDL-HDL RATIO 1.8 ratio (1.5-3.5)
--- NOTE | 2019-11-24 14:19 | NUR ---
PT ARRIVED BY STRETCHER. PLACED ON MONITORS. ASSESSMENT COMPLETED. VSS. CALL LIGHT WITHIN REACH. VSS. DR. RAZA ROUNDED AND SPOKE WITH FAMILY IN WAITING ROOM PRIOR TO PT'S ARRIVAL.
--- NOTE | 2019-11-24 14:35 | NUR ---
LEFT GROIN DRESSING C/D/I. NO S/S OF HEMATOMA NOTED. CALL LIGHT WITHIN REACH. VSS.
--- NOTE | 2019-11-24 15:10 | NUR ---
PT RESTING COMFORTABLY. VSS. LEFT GROIN DRESSING C/D/I. NO S/S OF HEMATOMA NOTED. CALL LIGHT WITHIN REACH. VSS. NO NEEDS AT THIS TIME. PT STILL IN SUPINE POSITION.
--- NOTE | 2019-11-24 15:40 | NUR ---
LEFT GROIN DRESSING C/D/I. NO S/S OF HEMATOMA NOTED. CALL LIGHT WITHIN REACH. VSS AT THIS TIME.
--- NOTE | 2019-11-24 16:13 | NUR ---
PT RESTING COMFORTABLY. VSS. LEFT GROIN DRESSING C/D/I. NO S/S OF HEMATOMA NOTED. CALL LIGHT WITHIN REACH. FAMILY AT BEDSIDE. NO NEEDS AT THIS TIME.
--- NOTE | 2019-11-24 17:00 | NUR ---
LEFT GROIN DRESSING C/D/I. NO S/S OF HEMATOMA NOTED. CALL LIGHT WITHIN REACH. PT'S HEAD OF BED INC TO 30 DEGREES. TOLERATED WELL. PT SET UP WITH SANDWICH TRAY AND DRINK. DENIES NAUSEA/PAIN AT THIS TIME.
--- NOTE | 2019-11-24 17:30 | NUR ---
LEFT GROIN DRESSING C/D/I. NO S/S OF HEMATOMA NOTED. PIV D/C'D WITH CATH TIP INTACT. TOLERATED WELL DISCUSSED DISCHARGE INSTRUCTIONS WITH PT AND PT'S FAMILY. THEY VOICED UNDERSTANDING. PT INSTRUCTED TO GET UP AND DRESSED AT THIS TIME. FAMILY AT BEDSIDE TO ASSIST.
--- NOTE | 2019-11-24 17:35 | NUR ---
PT AMBULATED TO RESTROOM. GOT BACK TO ROOM AND COMPLAINED OF "HARD SPOT" ON INNER LEFT THIGH. HAD PT LAY BACK IN BED AND HEMATOMA NOTED TO LEFT INNER THIGH. PRESSURE HELD AND THEN HEMATOMA MASSAGED OUT UNTIL SOFT TO TOUCH. BRUISING NOTED TO LEFT INNER THIGH AREA. PT LAYING BACK IN BED. WILL MONITOR FOR NEW BLEEDING.
--- NOTE | 2019-11-24 17:54 | NUR ---
LEFT GROIN CHECKED. NO NEW BLEEDING NOTED. SOFT TO TOUCH AT THIS TIME. BRUISING NOTED TO LEFT INNER THIGH. DRESSING C/D/I.
--- NOTE | 2019-11-24 18:05 | NUR ---
LEFT GROIN CHECKED. NO NEW BLEEDING NOTED. LEFT GROIN DRESSING C/D/I. AREA STILL SOFT TO TOUCH. BRUISING STILL NOTED. PT DENIES ANY PAIN UNLESS PRESSING ON LEFT GROIN SITE AND SHE REPORTS THAT IT IS SORE.
--- NOTE | 2019-11-24 18:15 | NUR ---
PT SAT UP AND AMBULATED TO RESTROOM AND BACK. LEFT GROIN DRESSING C/D/I. NO NEW BLEEDING NOTED. LEFT GROIN SOFT TO TOUCH. NO NEW HEMATOMA NOTED. PT SAT DOWN IN WHEELCHAIR.
--- NOTE | 2019-11-24 18:25 | NUR ---
PT'S LEFT GROIN STABLE AND SOFT TO TOUCH. DRESSING C/D/I. PT COMFORTABLE IN GOING HOME. PT TAKEN OUT TO VEHICLE BY WHEELCHAIR. NO S/S OF DISTRESS NOTED. ALL BELONGINGS AND PAPERWORK IN HAND.
--- NOTE | 2019-11-25 09:09 | OP ---
PATIENT NAME: DARLENE BRODERICK MEDICAL RECORD: [id number] :59 LOCATION:D.CAT ADMISSION DATE: SURGEON: INGRID RAZA MD DATE OF OPERATION: 11/24/2019 PROCEDURE: PDA stent report on right SFA. DESCRIPTION OF PROCEDURE: After advance scout films confirmed severe diffuse disease of the superficial femoral artery down to just before the trifurcation, we exchanged for a long sheath around the horn and predeployment balloon was a 4.0 x 80 mm balloon up and down the area. Stents were placed in the following fashion: A 5.0 x 100 cm and then a 5.0 x 120 stent were both deployed to cover the entire area of 90% plus stenosis. Post-deployment, we used a 5.0 x 80 mm balloon up and down the area of stenting. This shows excellent resolution of severe diffuse 90% stenosis, no significant residual with marked improvement in distal runoff. OVERALL IMPRESSION: Successful CLINICAL RESEARCH MANAGEMENT ASSOCIATE stenting to left SFA times 2, marked improvement in distal flow. Sheath was closed with ExoSeal device. The patient was previously on Plavix. Heparin was used in the lab. TRANSINT:[id number] Voice Confirmation ID: [id number] DOCUMENT ID: [id number] INGRID RAZA MD at 0909 CC: [id number] DICTATION DATE: 11/24/19 1402 GIN POLE OPERATOR: 11/25/19 0126 DEP CLI 11/24/19 [id number] [place] [address]
== END 2019-11-24 18:25 | disposition home or self-care (01) ==
LOC: D.CATH 11:23
PROVIDERS: ATTEND Internal Medicine Interventional Cardiology
DX: I25.10 Atherosclerotic heart disease of native coronary artery without angina pectoris (principal); I10 Essential (primary) hypertension; E78.5 Hyperlipidemia, unspecified; E11.9 Type 2 diabetes mellitus without complications

== ENCOUNTER 2020-07-08 13:33 | Inpatient (IN) | payer OTHER ==
[~2020-07-08] VITALS: Ht 165.1 cm; Wt 96.9 kg
--- NOTE | ~2020-07-08 | EC ---
PATIENT:DARLENE BRODERICK DATE OF SERVICE: 07/09/20 SEX: F MEDICAL RECORD: [id number] DATE OF : [birth year] LOCATION:D.M2 D.212 AGE OF PATIENT: 65 ADMISSION DATE: 07/09/20 REFERRING PHYSICIAN: INTERPRETING PHYSICIAN: BLAKE BEAR MD ECHOCARDIOGRAM REPORT ECHO CHARGES 4 ECHO COMPLETE Date: 07/09/20 CLINICAL DIAGNOSIS: CP ECHOCARDIOGRAPHIC MEASUREMENTS (adult normal given) AC root (d.<3.7cm) 2.7 cm LV Septum d (<1.2 cm> 1.6 cm Valve Excursion 1.4 cm LV Septum (systole) 1.7 cm Left Atria (s.<4.0cm> 3.8 cm LVPW d(<1.2cm) 1.2 cm RV (d.<2.3cm) 2.3 cm LVPW (sytole) 1.3 cm LV diastole(<5.6CM) 4.0 cm MV E-F(>70mm/sec) cm LV systole 2.7 cm LVOT Diameter 1.9 cm MV exc.(>10mm) cm Est.ejection fraction (50-75%) % DOPPLER: LVIT cm/sec A 67 cm/sec E 52 cm/sec LA cm/sec RVSP 14.9 mmHg LVOT 91 cm/sec AOP1/2T m/s Asc. Ao 134 cm/sec RVOT 58 cm/sec RA cm/sec PA 82 cm/sec AV Gradient Peak 7.1 mmHg AV Mean 4.1 mmHg AV Area 1.8 cm MV Gradient Peak 2.1 mmHg MV Mean 1.1 mmHg MV Area cm COMMENTS: Wooden Boat Builder: Theodore ISABEL Varitype Operator: Milton Bear TAPE# PACS Pericardial Effusion N DATE OF SERVICE: PROCEDURE: Transthoracic echocardiogram. FINDINGS: 1. The patient has left ventricular hypertrophy with ejection fraction of 55%. There is no significant wall motion abnormalities. 2. Left atrium is normal size, shape, structure, and function. 3. Aortic valve is normal. 4. Mitral valve appears to be normal. ECHOCARDIOGRAM REPORT [id number] DARLENE BRODERICK 5. Tricuspid valve has trace tricuspid regurgitation with normal right ventricular systolic pressures. 6. Right ventricle is normal. 7. Pulmonic valve not well visualized, but looks normal. The overall quality of the echo is poor, but there is no obvious valvular abnormalities and the ejection fraction appears to be overall normal. TRANSINT:[id number] Voice Confirmation ID: [id number] DOCUMENT ID: [id number] BLAKE BEAR MD CC: [id number] DICTATION DATE: 07/10/20 1055 THREE DIMENSIONAL MAP MODELER: 07/10/20 1525 ADM IN [facility] [address] [place] [address]
--- NOTE | ~2020-07-08 | ST ---
PATIENT:DARLENE BRODERICK MEDICAL RECORD: [id number] SEX: F LOCATION:[facility] D.212 ORDER #: ADMISSION DATE: 07/09/20 AGE OF PATIENT: 65 REFERRING PHYSICIAN: INTERPRETING PHYSICIAN: BLAKE BEAR MD DATE OF SERVICE: 07/10/2020 PROCEDURE PERFORMED: Lexiscan directed stress test. PROCEDURE IN DETAIL: The patient was brought into the nuclear lab. The patient was in stable condition. The patient was placed in a supine position on the nuclear table. The patient had Lexiscan injected without complication. The patient had sestamibi injected both at rest and stress. The patient's overall ejection fraction is 59%. There is no regional wall motion abnormalities. SPECT imaging shows anterior apical and mildly lateral ischemic changes that is severe in intensity, but only mild to moderate in distribution. TRANSINT:[id number] Voice Confirmation ID: [id number] DOCUMENT ID: [id number] BLAKE BEAR MD CC: [id number] DICTATION DATE: 07/10/20 1109 PLANT BREEDER SCIENTIST: 07/11/20 0055 ADM [address] [address] [place] [address]
--- NOTE | ~2020-07-08 | HEMODYNAMI ---
PATIENT:DARLENE BRODERICK MEDICAL RECORD: [id number] : 59 LOCATION:D. D.2122 LOCATED WITHIN [facility]# [id number] ADMISSION DATE: 07/09/20 Generatedon:07/11/20208:05 Patient name: DARLENE BRODERICK Patient #: [id number] SSN: [id number] : 1955 Date of study: 07/10/2020 Page: Of Hemodynamic Procedure Report Patient Data Patient Demographics First Name: DARLENE Gender: Female Last Name: MEGGAN : 1955 [facility] Initial: HARDY Age: 65 year(s) Patient #: [id number] Race: SSN: [id number] Additional ID: [id number] Contact details [address]: [address] [place] [address] State: [place] City: [place] Zip code: [address] Past Medical History Allergies Allergen Reaction Date Comments Reported Penicillins 08/10/2019 Other allergy 11/24/2019 pcn Other allergy 07/10/2020 PCN Admission Admission Data Admission Date: 07/09/2020 Admission Time: 23:27 Admit Source: Other Room #: D.2122 Lab Results Lab Result Date: 07/10/2020 Lab Result Time: 0:00 Biochemistry Name Units Result Min Max BUN mg/dl 24 --(----)-* 7 18 Creatinine mg/dl 1.2 --(---*)-- 0.6 1.3 eGFR ml/min 48 *-(----)-- 90 120 NONAFRICAN CBC Name Units Result Min Max Hemoglobin g/dl 11.6 *-(----)-- 13.5 17.5 Procedure Procedure Types Cath Procedure Diagnostic Procedure LHC [facility] w/Coronaries Sedation Charges Moderate Sedation up to 30 minutes PCI Procedure Hemochron ACT Test Procedure Description Procedure Date Procedure Date: 07/10/2020 Procedure Start Time: 9:02 Procedure End Time: 9:40 Procedure Staff Name Function Amy Santana RT Scrmichael Bowman RN Nurse Renetta White RT Monitor Gladys Sharma MD Ordering physician Nieves Robledo MD Performing Physician Procedure Data Cath Procedure Fluoroscopy Diagnostic fluoroscopy Total fluoroscopy Time: time: 15.9 min 15.9 min Diagnostic fluoroscopy Total fluoroscopy dose: dose: 1775 mGy 1775 mGy Contrast Material Contrast Material Type Amount (ml) Isovue 300 77 Entry Location Entry Primary Successful Side Size Upsize Upsize Entry Closure Harris ccessful Closure Location (Fr) 1 (Fr) 2 (Fr) Remarks Device Remarks Radial Right 6 Fr Mechanical artery Short Compression Estimated blood loss: 10 ml Diagnostic catheters Device Type Used For End Catheter Placement DIAGNOSTIC [place] 110cm 5 Procedure Fr catheter ([id number]) DIAGNOSTIC AR MOD 5Fr Procedure Catheter ([id number]) Procedure Complications No complications Procedure Medications Medication Administration Route Dosage Oxygen etCO2 Nasal cannula 2 l/min Lidocaine 2% added to field 20 Heparin Flush Bag added to field 2 bags (1000units/500ml NS) 0.9% NaCl I.V. bolus 500 ml Versed I.V. 1 mg Fentanyl I.V. 25 mcg Versed I.V. 1 mg Heparin Bolus I.V. 6000 units Radial Cocktail I.A. 1 syringe (Verapamil 2mg/Nitro 400mcg/Heparin 1500units) Heparin Bolus I.V. 2000 units Hemodynamics Rest HGB: 11.6 (g/dl) Heart Rate: 68 (bpm) Pressure Samples Time Site Value (mmHg) Purpose Heart Use Rate(bpm) 9:05 LV 146/-9,12 EDP 76 Gradients Valve Time Site Site Mean SEP/DFP Peak To Heart Use 1 2 (mmHg) (sec/min) Peak Rate (mmHg) (bpm) Aortic 9:06 LV AO 75 Snapshots Pre Cath Intra NCS Post Cath Vital Signs Time Heart Resp SPO2 etCO2 NIBP (mmHg) Rhythm Pain Status Sedation Rate (ipm) (%) (mmHg) Level (bpm) 8:59:42 74 21 98 35.2 169/82(129) NSR 4 (11) , 10(A) Distressing 9:03:21 72 24 100 33 172/87(137) NSR 0 (11) , No 10(A) pain 9:07:43 69 20 98 36.7 151/78(113) NSR 0 (11) , No 10(A) pain 9:11:55 70 23 98 34.5 153/83(122) NSR 0 (11) , No 10(A) pain 9:16:11 65 21 99 34.5 150/77(118) NSR 0 (11) , No 10(A) pain 9:20:25 66 19 99 35.2 150/80(118) NSR 0 (11) , No 10(A) pain 9:24:39 67 22 100 35.3 163/79(131) NSR 0 (11) , No 10(A) pain 9:28:55 66 18 100 35.3 147/84(128) NSR 0 (11) , No 10(A) pain 9:33:11 64 16 100 38.3 163/70(126) NSR 0 (11) , No 10(A) pain 9:37:26 70 16 99 36 173/86(120) NSR 0 (11) , No 10(A) pain Medications Time Medication Route Dose Verified Delivered Reason Note s Effectiveness by by 8:59:57 Oxygen etCO2 2 l/min Nieves Patel used for Nasal Venkat Bowman RN procedure cannula 9:00:04 Lidocaine 2% added 20ml Nieves Skelton for local to vial Venkat Robledo MD anesthetic field 9:00:11 Heparin Flush added 2 bags Nieves Skelton used for Bag to Venkat Robledo MD procedure (1000units/500ml field NS) 9:00:24 0.9% NaCl I.V. 500 ml Nieves Patel Per physician bolus Venkat Bowman RN 9:01:31 Radial Cocktail I.A. 1 Nieves Skelton for (Verapamil syringe Venkat Robledo MD vasodilation 2mg/Nitro 400mcg/Hepari 9:02:16 Versed I.V. 1 mg Nieves Buffie for sedation Venkat Bowman RN 9:02:22 Fentanyl I.V. 25 mcg Nieves Buffie for sedation Venkat Bowman RN 9:10:25 Versed I.V. 1 mg Nieves Frederickie for sedation Venkat Bowman RN 9:13:53 Heparin Bolus I.V. 6000 Nieves Buffie for veri fied units Venkat Bowman RN anticoagulation with dr skelton 9:30:57 Heparin Bolus I.V. 2000 Nieves Patel for veri fied units Venkat Bowman RN anticoagulation with dr skelton Procedure Log Time Note 8:20:54 Admit Source: Other 8:21:39 Procedure Status Urgent Heart Cath (IP). 8:21:57 Jorge Bowman RN sent for patient. Start room use. 8:21:59 Time tracking: Regular hours (M-F 7:00 - 5:00) 8:22:06 Plan of Care:Hemodynamics will remain stable., Cardiac rhythm will remain stable., Comfort level will be maintained., Respiratory function will remain adequate., Patient/ family verbilizes understanding of procedure., Procedure tolerated without complication., Recovers from procedure without complications.. 8:22:14 Patient received from Med II to CCL 1 Alert and oriented. Tansferred to table in Supine position. 8:22:16 Correct patient and procedure confirmed by team. 8:22:16 Warm blankets applied, and chiquis hugger turned on for patient comfort. 8:22:26 H&P Date Dictated: 07/09/2020 Within 30 days and on chart., H&P Addendum completed by physician on day of procedure. (MUST COMPLETE FOR ALL OUTPATIENTS). 8:22:37 Pre-procedure instructions explained to patient. 8:22:48 Pre-op teaching completed and patient verbalized understanding. 8:23:06 Family in patients room. 8:23:09 Patient NPO since Midnight. 8:23:24 Patient allergic to Other allergyPCN 8:23:32 Was the patient premedicated? Yes 8:23:33 Is patient on blood thinner?Yes 8:23:37 ACC The patient was administered the following blood thiners within the last 24 hours: ACCPlavix 8:55:54 Patient diabetic? Yes. 8:55:56 If diabetic: On Metformin? No 8:56:06 Snore? Yes 8:56:08 Sleep apnea? No 8:56:17 Airway obstruction? Yes COPD 8:56:23 Dentures? Yes tight 8:56:27 Patient pain scale 4/10 ?. 8:57:12 IV started by Jorge Bowman RN inleft forearm with a 22 gauge IV catheter with 0.9% NaCl at KVO. 8:57:53 Lab Result : eGFR NONAFRICAN 48 ml/min 8:57:53 Lab Result : Hemoglobin 11.6 g/dl 8:57:53 Lab Result : BUN 24 mg/dl 8:57:53 Lab Result : Creatinine 1.2 mg/dl 8:57:57 Lab results completed and on chart. 8:58:07 Right Radial & Right Groin area was prepped with chlora-prep and draped in sterile fashion 8:58:08 Sharps counted by scrub and verified by R.N. 8:58:08 Alarms reviewed by R. N. 8:58:09 Physician arrived 8:58:10 --------ALL STOP TIME OUT------ 8:58:11 Final Timeout: patient, procedure, and site verified with staff and physician. All members of the team are in agreement. 8:58:13 Right Radial & Left Groin site verified by team. 8:58:18 Right Radial & Right Groin site verified by team. 8:58:30 ECG and BP/O2 sat monitors applied to patient. 8:58:31 Vital chart was started 8:58:33 Baseline sample Acquired. 8:58:37 Rhythm: sinus rhythm 8:58:39 Full Disclosure recording started 8:58:52 Fire Safety Assessment: A--An alcohol-based skin anteseptic being used preoperatively., C--Open oxygen or nitrous oxide is being used., D--An ESU, laser, or fiber-optic light is being used. 8:58:57 Physical assessment completed. ASA score P 2 - A patient with mild systemic disease as per Nieves Robledo MD. 8:59:06 3a) 45-59 Moderately reduced kidney function. 8:59:09 Maximum allowable contrast dose (3.7 X eGFR X 0.75)133 ml. 8:59:13 Sedation plan: IV Moderate Sedation Medication:Versed, Fentanyl 8:59:33 Use device set Radial Dx or PCI 8:59:36 Medline Cath Pack ([id number]) opened to sterile field. 8:59:36 ACIST Syringe (77079) opened to sterile field. 8:59:37 ACIST Hand Control (22285) opened to sterile field. 8:59:37 Bag Decanter () opened to sterile field. 8:59:38 Tegaderm 4 x 4 (1626W) opened to sterile field. 8:59:38 ACIST Manifold (42040) opened to sterile field. 8:59:40 MBrace Wrist Support (340673603) opened to sterile field. 8:59:45 EMERALD Guide Wire (273-618) opened to sterile field. 8:59:46 SHEATH 6FR RAIN (8410768) opened to sterile field. 8:59:57 Oxygen 2 l/min etCO2 Nasal cannula was administered by Jorge Bowman RN; used for procedure; Verbal order read back and verified. 9:00:04 Lidocaine 2% 20ml vial added to field was administered by Nieves Robledo MD; for local anesthetic; Verbal order read back and verified. 9:00:11 Heparin Flush Bag (1000units/500ml NS) 2 bags added to field was administered by Nieves Robledo MD; used for procedure; Verbal order read back and verified. 9:00:24 0.9% NaCl 500 ml I.V. bolus was administered by Jorge Bowman RN; Per physician; Verbal order read back and verified. 9:01:30 Procedure started. 9:01:31 Radial Cocktail (Verapamil 2mg/Nitro 400mcg/Heparin 1500units) 1 syringe I.A. was administered by Nieves Robledo MD; for vasodilation; Verbal order read back and verified. 9:02:16 Local anesthetic to right radial artery with Lidocaine 2% by Nieves Robledo MD.INITIAL ACCESS ONLY 9:02:16 Versed 1 mg I.V. was administered by Jorge Bowman RN; for sedation; Verbal order read back and verified. 9:02:22 Fentanyl 25 mcg I.V. was administered by Jorge Bowman RN; for sedation; Verbal order read back and verified. 9:03:55 A 6 Fr Short sheath was inserted into the Right Radial artery 9:04:32 A DIAGNOSTIC [place] 110cm 5 Fr catheter (921007) was advanced over the wire and used for Procedure. 9:05:00 LV angiography performed. 9:05:02 Zero performed for pressure channel P1 9:05:59 LV gram done using BUTTERFIELD 9:06:11 EF : 60 % 9:07:13 LCA angiography performed. 9:08:33 Catheter removed. 9:08:54 A DIAGNOSTIC AR MOD 5Fr Catheter ([id number]) was advanced over the wire and used for Procedure. 9:09:55 RCA angiography performed. 9:10:25 Versed 1 mg I.V. was administered by Buffie Bowman RN; for sedation; Verbal order read back and verified. 9:11:23 Catheter removed. 9:11:25 Proceeding to intervention. 9:12:33 GUIDE 6FR EBU 3.0 catheter ([id number]) opened to sterile field. 9:12:35 COPILOT Valve Control (8296046) opened to sterile field. 9:12:49 6 Fr EBU3 guide catheter was inserted over the wire 9:13:15 BMW 300cm [place] 2 J wire (7086820C) opened to sterile field. 9:13:16 INFLATOR Merit BasixCompak (RM1311) opened to sterile field. 9:13:34 BMW wire advanced. 9:13:53 Heparin Bolus 6000 units I.V. was administered by Jorge Bowman RN; for anticoagulation; verified with dr skelton Verbal order read back and verified. 9:23:33 Wire removed. 9:23:48 CHOICE PT Extra Support 182cm wire ([id number]) opened to sterile field. 9:25:28 pt wire advanced. 9:30:57 Heparin Bolus 2000 units I.V. was administered by Jorge Bowman RN; for anticoagulation; verified with dr skelton Verbal order read back and verified. 9:32:28 Wire advanced across lesion. 9:35:09 The EUPHORA 2.0 x 20 Balloon ([id number]) was advanced and then removed because of failure to cross lesion 9:35:31 Wire removed. 9:35:33 Balloon removed over the wire. 9:35:34 Guide catheter removed. 9:36:03 Sheath removed intact; hemostasis achieved with Mechanical Compression to the Right Radial artery. 9:36:06 Procedure ended.(Physican Out) 9:36:24 Fluoroscopy time 15.90 minutes. 9:36:28 Fluoroscopy dose: 1775 mGy 9:36:28 Flurop Dose total: 1775 9:36:36 Dose Area Product 81440 mGy/cm. 9:36:40 Contrast amount:Isovue 300 77ml. 9:36:44 Maximum allowable dose exceeded? No. 9:36:50 Sharps counted by scrub and verified by R.N. 9:36:52 [place] band inflated with 10cc of air. 9:36:54 Insertion/operative site no bleeding no hematoma. 9:37:02 Post-procedure physical assessment completed. ASA score P 2 - A patient with mild systemic disease as per Nieves Robledo MD. 9:37:06 Post procedure rhythm: sinus rhythm 9:37:09 Estimated blood loss: 10 ml 9:37:10 Post procedure instruction explained to patient.Patient verbalizes understanding. 9:37:11 Patient needs reinforcement of post procedure teaching. 9:37:22 Procedure type changed to Cath procedure, Diagnostic procedure, LHC, [facility] w/Coronaries, Sedation Charges, Moderate Sedation up to 30 minutes, PCI procedure, Hemochron ACT Test 9:37:52 Procedure and supply charges have been captured, reviewed, submitted and are correct. 9:40:04 Vital chart was stopped 9:40:07 Procedure Complication : No complications 9:40:[address] [facility] Findings: MVD- manage w/ optimal medication therapy 9:40:21 Operative report dictated upon procedure completion. 9:40:22 See physician's report for complete and final results. 9:40:24 Report given to Med II. 9:40:28 Patient transfered to Med II with Bed. 9:40:31 Full Disclosure recording stopped 9:40:31 Procedure ended. 9:40:40 End room use (Document Last) 8:04:19 Late Entry: ACT result 271 Intervention Summary Intervention Notes Time ActionType Lesion and Equipment Action# Pressure Duration Attributes Used 9:35:09 Discard EUPHORA Balloon 2.0 x 20 Balloon ([id number]) Device Usage Item Name Manufacture Quantity Catalog Number Hospital Part Current Mini [facility] Lot# / Charge Number Stock Stock Serial# Code ACIST Acist 1 30103 984562 744273 191980 20 Syringe Medical (86036) Systems Inc Medline Medline 1 [id number] 602872 60075 050159 5 Cath Pack ([id number]) Bag Microtek 1 2001S 184932 62397 193939 5 Decanter Medical Inc. () ACIST Hand Acist 1 04587 417576 979751 573174 5 Control Medical (63576) Systems Inc ACIST Acist 1 63441 402960 981478 769099 5 Manifold Medical (91738) Systems Inc Tegaderm 4 3M 1 1626W 801295 713413 523696 5 x 4 (1626W) MBrace Advanced 1 140-0250-00 668715 97799 750715 5 Wrist Vascular Support Dynamics (615489651) EMERALD Cardinal 1 502-455 045349 143976 390142 5 Guide Wire Health (502-455) SHEATH 6FR Cardinal 1 8107485 913463 3767843 628798 5 RAIN Health (0862854) DIAGNOSTIC Terumo 1 40-0853 632567 543400 122755 5 [place] 110cm 5 Fr catheter (451899) DIAGNOSTIC Cardinal 1 329143X 313618 172953 164253 15 AR MOD 5Fr Health Catheter (994046Y) GUIDE 6FR Medtronic 1 [id number] 700765 74612 860856 0 EBU 3.0 catheter (AL2CBE56) COPILOT Barbour 1 9442332 811630 839571 965411 5 Valve Vascular Control (6071511) BMW 300cm [place] 1 [id number] 715641 892321 507069 5 [place] 2 Vascular J wire (4974190E) INFLATOR Mercora 1 IF9484 027182 110569 600671 15 [facility] Medical BasixCompak (WP4176) CHOICE PT Simms 1 [id number] 010367 642841 119225 5 Extra Scientific Support 182cm wire (2021515W6) EUPHORA 2.0 Medtronic 1 [id number] 190783 696035 192345 5 [id number] x 20 Balloon ([id number]) Signature Audit [place] Stage Time Signature Unsigned Intra-Procedure 07/10/2020 Jorge Bowman RN 9:42:58 AM Intra-Procedure 07/10/2020 Renetta White 9:43:47 AM RT(R) Intra-Procedure 07/10/2020 Nieves Baxter RN 9:44:11 AM 07/11/2020 8:04:02 AM Intra-Procedure 07/11/2020 Jorge Bowman RN 8:05:07 AM Intra-Procedure 07/11/2020 Nieves Robledo MD 8:05:[address] [place] [address]
[2020-07-08 13:57] VITALS: BP 136/45
--- NOTE | 2020-07-08 14:10 | NUR ---
PT STATES THE PRESSURE IN HER CHEST IS RELIEVED WITH THE NITRO TAB .
[2020-07-08 14:26] LABS: CALC OSMOLALITY 284 mosm/kg (275-300); CALCIUM 9.3 mg/dL (8.5-10.1); CHLORIDE - SERUM 104 mmol/L (98-107); CREATININE - SERUM 1.2 mg/dL (0.6-1.3); GLUCOSE 177 mg/dL (74-106); POTASSIUM - SERUM 4.3 mmol/L (3.5-5.1); SODIUM 138 mmol/L (136-145); UREA NITROGEN 26 mg/dL (7-18); eGFR NON AFRICAN AMERICAN 48 mL/min (90-120)
[2020-07-08 14:32] LABS: BASOPHILS 0.1 % (0-2); EOSINOPHILS 2.2 % (0-7); HEMATOCRIT 37.7 % (36.0-48.0); HEMOGLOBIN 12.3 g/dL (12-16); IMMATURE GRANULOCYTES 0.4 % (0-5); MCH 28.3 pg (26.0-34.0); MCHC 32.6 g/dL (31.0-37.0); MCV 86.9 fL (80.0-100.0); MEAN PLATELET VOLUME 9.8 fL (7.4-10.4); MONOCYTES 8.3 % (2-11); PLATELET COUNT 215 10x3/uL (130-400); RBC 4.34 10x6/uL (4.00-5.40); RDW 13.3 % (11.5-14.5); WBC 7.3 10x3/uL (4.8-10.8)
[2020-07-08 14:35] LABS: APTT 24.6 SECONDS (22.8-39.4); INR 0.93 (0.85-1.17); PROTIME 12.4 SECONDS (11.6-15.0)
[2020-07-08 14:42] LABS: ALBUMIN 3.8 g/dL (3.4-5.0); ALKALINE PHOSPHATASE 124 U/L (30-120); ALT (SGPT) 25 U/L (10-68); BILIRUBIN - TOTAL 0.37 mg/dL (0.2-1.3); CKMB 0.7 U/L (0.0-3.6); CREATINE KINASE 44 UL (21-215); MAGNESIUM - SERUM 1.5 mg/dL (1.8-2.4); PROTEIN - SERUM 8.1 g/dL (6.4-8.2)
[2020-07-08 14:54] LABS: TROPONIN-I < 0.017 ng/mL (0.000-0.060)
[2020-07-08 17:06] LABS: UDS - AMPHET NEGATIVE QUAL (NEGATIVE); UDS - BARB NEGATIVE QUAL (NEGATIVE); UDS - BENZO NEGATIVE QUAL (NEGATIVE); UDS - COCAINE NEGATIVE QUAL (NEGATIVE); UDS - OPIATE NEGATIVE QUAL (NEGATIVE); UDS - PCP NEGATIVE QUAL (NEGATIVE); UDS - THC NEGATIVE QUAL (NEGATIVE)
[2020-07-08 17:12] LABS: BILIRUBIN NEGATIVE (NEGATIVE); KETONE NEGATIVE (NEGATIVE); NITRITE NEGATIVE (NEGATIVE); UROBILINOGEN NORMAL (NORMAL)
[2020-07-08 17:13] LABS: BACTERIA FEW /hpf (NEGATIVE); EPITHELIAL CELLS OCC /hpf (0-5); RED CELLS - URINE OCC /hpf (0-5); WHITE CELLS - URINE 0-5 /hpf (NEGATIVE)
[2020-07-08] MEDS ORDERED: PREDNISONE5 MG PO (17:37)
[2020-07-08 17:48] VITALS: BMI 35.8
--- NOTE | 2020-07-08 18:55 | NUR ---
REPORT RECEIVED, PT CARE ASSUMED. INTRODUCED SELF AND WROTE NAME ON BOARD. PT SITTING UP IN BED, WATCHING TV, AAOX4. DENIES ANY NEEDS AT THIS TIME. BED IN LOWEST, SRX2, CALL LIGHT WITHIN REACH. WILL CTM.
[2020-07-08 20:00] VITALS: BP 132/58
[2020-07-09 03:11] LABS: BASOPHILS 0.2 % (0-2); EOSINOPHILS 2.9 % (0-7); HEMATOCRIT 35.1 % (36.0-48.0); HEMOGLOBIN 11.2 g/dL (12-16); IMMATURE GRANULOCYTES 0.2 % (0-5); LYMPHOCYTES 25.2 % (15-50); MCH 27.9 pg (26.0-34.0); MCHC 31.9 g/dL (31.0-37.0); MCV 87.5 fL (80.0-100.0); MEAN PLATELET VOLUME 9.1 fL (7.4-10.4); MONOCYTES 13.4 % (2-11); NEUTROPHILS 58.1 % (40-80); PLATELET COUNT 190 10x3/uL (130-400); RBC 4.01 10x6/uL (4.00-5.40); RDW 13.4 % (11.5-14.5)
[2020-07-09 03:12] LABS: WBC 5.4 10x3/uL (4.8-10.8)
[2020-07-09 03:36] LABS: ANION GAP 13.7 mmol/L (8-16); CALCIUM 8.7 mg/dL (8.5-10.1); CARBON DIOXIDE 24.4 mmol/L (21.0-32.0); CREATININE - SERUM 1.2 mg/dL (0.6-1.3); POTASSIUM - SERUM 4.1 mmol/L (3.5-5.1)
[2020-07-09 03:37] LABS: TROPONIN-I 0.084 ng/mL (0.000-0.060)
[2020-07-09 04:00] VITALS: BP 120/49
[2020-07-09 08:13] VITALS: BP 143/52
[2020-07-09 10:07] VITALS: Ht 165.1 cm; Wt 96.9 kg
[2020-07-09 12:00] VITALS: BP 145/65
--- NOTE | 2020-07-09 12:29 | NUR ---
THIS AM PATIENT IS RESTING QUIETLY WITHOUT ANY COMPLAINTS. MONITOR SHOWS SR @ RATE OF 60. WILL CONITNUE TO MONITOR.
--- NOTE | 2020-07-09 12:30 | NUR ---
TO NUCLEAR MED FOR STRESS TESST.
[2020-07-09 15:19] LABS: BASOPHILS 0.4 % (0-2); EOSINOPHILS 2.7 % (0-7); HEMATOCRIT 34.5 % (36.0-48.0); HEMOGLOBIN 11.2 g/dL (12-16); IMMATURE GRANULOCYTES 0.4 % (0-5); LYMPHOCYTES 21.7 % (15-50); MCH 28.4 pg (26.0-34.0); MCHC 32.5 g/dL (31.0-37.0); MCV 87.6 fL (80.0-100.0); MEAN PLATELET VOLUME 9.3 fL (7.4-10.4); NEUTROPHILS 64.8 % (40-80); PLATELET COUNT 188 10x3/uL (130-400); RBC 3.94 10x6/uL (4.00-5.40); RDW 13.2 % (11.5-14.5); WBC 5.6 10x3/uL (4.8-10.8)
[2020-07-09 15:30] LABS: ANION GAP 17.2 mmol/L (8-16); CALCIUM 8.6 mg/dL (8.5-10.1); CARBON DIOXIDE 22.2 mmol/L (21.0-32.0); CREATININE - SERUM 1.2 mg/dL (0.6-1.3); POTASSIUM - SERUM 4.4 mmol/L (3.5-5.1)
[2020-07-09 16:00] VITALS: BP 143/57
[2020-07-09 20:00] VITALS: BP 141/61
[2020-07-10] VITALS: BP 136/61
[2020-07-10 04:00] VITALS: BP 140/59
[2020-07-10 06:19] LABS: BASOPHILS 0.3 % (0-2); EOSINOPHILS 2.4 % (0-7); HEMATOCRIT 36.1 % (36.0-48.0); HEMOGLOBIN 11.6 g/dL (12-16); IMMATURE GRANULOCYTES 0.2 % (0-5); LYMPHOCYTES 19.9 % (15-50); MCH 27.9 pg (26.0-34.0); MCHC 32.1 g/dL (31.0-37.0); MCV 86.8 fL (80.0-100.0); MEAN PLATELET VOLUME 9.5 fL (7.4-10.4); MONOCYTES 10.6 % (2-11); NEUTROPHILS 66.6 % (40-80); PLATELET COUNT 210 10x3/uL (130-400); RBC 4.16 10x6/uL (4.00-5.40); RDW 13.1 % (11.5-14.5); WBC 6.1 10x3/uL (4.8-10.8)
[2020-07-10 06:33] LABS: ALBUMIN 3.4 g/dL (3.4-5.0); BILIRUBIN - TOTAL 0.27 mg/dL (0.2-1.3); CALCIUM 8.4 mg/dL (8.5-10.1); CARBON DIOXIDE 26.3 mmol/L (21.0-32.0); CREATININE - SERUM 1.2 mg/dL (0.6-1.3); POTASSIUM - SERUM 4.3 mmol/L (3.5-5.1); PROTEIN - SERUM 6.9 g/dL (6.4-8.2)
--- NOTE | 2020-07-10 07:20 | NUR ---
RECIEVE REPORT. ALERT AND ORIENTED X4. SITTING UP IN BED WATCHING TV. CONSENTS FOR HEART CATH SIGNED ON CHART. DENIES ANY NEEDS. CONTINUE PLAN OF CARE AND SAFETY PRECAUTIONS.
[2020-07-10 08:00] VITALS: BP 139/52
--- NOTE | 2020-07-10 10:00 | NUR ---
ARRIVE BACK TO ROOM VIA BED FROM DATE NIGHT SITTER. TR BAND TO RT WRIST C/D/I. FREE FROM BLEEDING. FREE FROM HEMATOMA. BP-144/66, HR-60 SINUS RYTHM ON TELEMETRY. DENIES ANY NEEDS. CONTINUE PLAN OF CARE AND SAFETY PRECAUTIONS.
[2020-07-10 16:00] VITALS: BP 127/55
--- NOTE | 2020-07-10 16:44 | NUR ---
ALERT AND ORIENTED X4. SITTING UP IN BED. TR BAND BLEEDS WHEN DEFLATING. CONTINUE TO MONITOR CLOSELY. DENIES ANY NEEDS. CONTINUE PLAN OF CARE AND SAFETY PRECAUTIONS.
--- NOTE | 2020-07-10 18:55 | NUR ---
REPORT RECEIVED, PT CARE ASSUMED. WROTE NAME ON BOARD. PT LYING IN BED WITH EYES CLOSED, RR EVEN AND NONLABORED, NO S/S OF DISTRESS, AROUSES EASILY TO VOICE. DENIES ANY NEEDS AT THIS TIME. BED IN LOWEST, SRX1, CALL LIGHT WITHIN REACH. WILL CTM.
[2020-07-10 20:00] VITALS: BP 128/53
--- NOTE | 2020-07-10 21:52 | NUR ---
FSBS 263; PM MEDS AND 6 UNITS HUMALOG ADMINISTERED, PER ORDER. REQUESTING DIET NISSA AND SNACK, PROVIDED. DENIES ANY OTHER NEEDS AT THIS TIME. BED IN LOWEST, SRX1, CALL LIGHT WITHIN REACH. WILL CTM.
[2020-07-11] VITALS: BP 132/39
[2020-07-11 04:00] VITALS: BP 113/45
[2020-07-11 04:56] LABS: BASOPHILS 0.2 % (0-2); EOSINOPHILS 2.6 % (0-7); HEMATOCRIT 33.9 % (36.0-48.0); HEMOGLOBIN 10.7 g/dL (12-16); IMMATURE GRANULOCYTES 0.2 % (0-5); LYMPHOCYTES 19.5 % (15-50); MCH 27.7 pg (26.0-34.0); MCHC 31.6 g/dL (31.0-37.0); MCV 87.8 fL (80.0-100.0); MEAN PLATELET VOLUME 9.2 fL (7.4-10.4); MONOCYTES 12.5 % (2-11); PLATELET COUNT 171 10x3/uL (130-400); RBC 3.86 10x6/uL (4.00-5.40); RDW 13.1 % (11.5-14.5)
--- NOTE | 2020-07-11 07:20 | NUR ---
RECIEVE REPORT. ALERT AND ORIENTED X4. RESTING IN BED. RT WRIST FREE FROM HEMATOMA. FREE FROM BLEEDING. IMMOBILIZER ON. NOTIFY OF LACK OF PLAN FROM YESTERDAY. PLAN OF CARE NEEDS ADDRESSED. SINUS HEAVEN 56 ON TELEMETRY. DENIES ANY NEEDS. CONTINUE PLAN OF CARE AND SAFETY PRECAUTIONS.
[2020-07-11 09:00] VITALS: BP 134/49
[2020-07-11 09:24] LABS: ALBUMIN 3.1 g/dL (3.4-5.0); ANION GAP 13.6 mmol/L (8-16); BILIRUBIN - TOTAL 0.24 mg/dL (0.2-1.3); CARBON DIOXIDE 23.5 mmol/L (21.0-32.0); CREATININE - SERUM 1.3 mg/dL (0.6-1.3); POTASSIUM - SERUM 4.1 mmol/L (3.5-5.1); PROTEIN - SERUM 6.8 g/dL (6.4-8.2)
[2020-07-11 12:49] VITALS: BP 123/57
--- NOTE | 2020-07-11 12:56 | MORECARE ---
CASE MANAGEMENT DISCHARGE SUMMARY PATIENT: DARLENE BRODERICK UNIT: [id number] ADM DATE: 07/09/20 AGE: 65 : 59 SEX: F ROOM/BED: D.[facility] AUTHOR: KARTHIK GANDHI PHYSICIAN: REFERRING PHYSICIAN: JULIO CESAR MADISON MD DATE OF SERVICE: 07/11/20 Discharge Plan Patient Name: DARLENE BRODERICK Facility: [facility]:[place] : 1955 Planned Disposition: Home Anticipated Discharge Date: Discharge Date: Expected LOS: 0 Initial Reviewer: [email or web address] Initial Review Date: 07/08/2020 Generated: 07/11/20 1:56 pm DCPIA - Discharge Planning Initial Assessment Updated by [email or web address]: Leyla Enriquez on 07/11/20 12:56 pm * Is the patient Alert and Oriented? Yes * How many steps to enter\exit or inside your home? RAMP * PCP FARO * Pharmacy [facility] * ADLs Independent * Equipment None * List name and contact numbers for known caregivers / representatives who currently or will assist patient after discharge: SCOTT [phone] * Verbal permission to speak to the caregivers and representatives has been obtained from the patient. Yes * Community resources currently utilized None * Additional services required to return to the preadmission environment? No Coverage Notice Reviewer: [email or web address] - Leyla Enriquez Notice Issued Date-Time: 07/09/2020 15:00 Notice Type: Medicare Outpatient Observation Notice Notice Delivered To: Patient Relationship to Patient: Color Maker Name: Delivery Method: HAND - Hand Delivered Vickie Days: Prior Verbal Notification: Recipient Understood Notice: Yes Recipient Signature: Yes Med Rec Note Co-signed by Attending: Coverage Notice Comment: COOLEY DELIVERED Patient Name: DARLENE BRODERICK Page [phone] at 1256 All edits/amendments must be made on the electronic document DICTATION DATE: 07/11/20 1256 TRAVEL INSURANCE AGENT: EWA 07/11/20 1256 RPT#: [id number] DC DATE: STATUS: ADM IN [facility] [address] [place] [address] END OF REPORT
--- NOTE | 2020-07-11 13:05 | MORECARE ---
CASE MANAGEMENT DISCHARGE SUMMARY PATIENT: DARLENE BRODERICK UNIT: [id number] ADM DATE: 07/09/20 AGE: 65 : 59 SEX: F ROOM/BED: D.1868 AUTHOR: KARTHIK GANDHI PHYSICIAN: REFERRING PHYSICIAN: JULIO CESAR MADISON MD DATE OF SERVICE: 07/11/20 Discharge Plan Patient Name: DARLENE BRODERICK Facility: [facility]:[place] : 1955 Planned Disposition: Home Anticipated Discharge Date: Discharge Date: Expected LOS: 0 Initial Reviewer: [email or web address] Initial Review Date: 07/08/2020 Generated: 07/11/20 2:05 pm Comments DCP- Discharge Planning Updated by [email or web address]: Leyla Enriquez on 07/11/20 12:[address] Patient Name: DARLENE BRODERICK Admission Status: ER Admission Date: 07-09-2020 : 1955 Admission Diagnosis: Attending: JULIO CESAR CHRISTIANSON Current LOS: 2 Anticipated DC Date: Planned Disposition: Home Primary Insurance: [employer] Discharge Planning Comments: CM met with patient to complete initial dc planning assessment. CM educated patient on the CM role and verbal consent given by patient to complete assessment. CM verified patient's address, phone number, and emergency contact phone numbers. Patient lives at home and her son and grandson life with her. Pt states prior to admission she was independent with her ADL's. At discharge patient plans to return home and feels this is a safe discharge. CM discussed availability of home health, rehab services, and medical equipment. Patient denied known discharge needs at this time. Transportation provider at discharge will be her son Scott [phone] . DC IMM delivered, explained, signed by the patient, and placed in chart. Signed form also left with the patient. CM will continue to follow and will assist as needed with dc plans/needs. Industrial Hygiene Manager: Leyla Enriquez DCPIA - Discharge Planning Initial Assessment Updated by [email or web address]: Leyla Enriquez on 07/11/20 12:56 pm * Is the patient Alert and Oriented? Yes * How many steps to enter\exit or inside your home? RAMP * PCP FARO * Pharmacy [facility] * ADLs Independent * Equipment None * List name and contact numbers for known caregivers / representatives who currently or will assist patient after discharge: SCOTT [phone] * Verbal permission to speak to the caregivers and representatives has been obtained from the patient. Yes * Community resources currently utilized None * Additional services required to return to the preadmission environment? No Coverage Notice Reviewer: [id number] Kyle Enriquez Notice Issued Date-Time: 07/09/2020 15:00 Notice Type: Medicare Outpatient Observation Notice Notice Delivered To: Patient Relationship to Patient: Painter And Grader Cork Name: Delivery Method: HAND - Hand Delivered Vickie Days: Prior Verbal Notification: Recipient Understood Notice: Yes Recipient Signature: Yes Med Rec Note Co-signed by Attending: Coverage Notice Comment: COOLEY DELIVERED Reviewer: [email or web address] Enriquez Notice Issued Date-Time: 07/11/2020 12:30 Notice Type: IM Discharge Notice Notice Delivered To: Patient Relationship to Patient: Painter And Grader Cork Name: Delivery Method: HAND - Hand Delivered Vickie Days: Prior Verbal Notification: Recipient Understood Notice: Yes Recipient Signature: Yes Med Rec Note Co-signed by Attending: Coverage Notice Comment: DC IMM delivered, explained, signed by the patient, and placed in chart. Signed form also left with the patient. Reviewer: [id number] Kyle Enriquez Notice Issued Date-Time: 07/11/2020 12:30 Notice Type: Patient Choice Letter Notice Delivered To: Patient Relationship to Patient: Painter And Grader Cork Name: Delivery Method: HAND - Hand Delivered Vickie Days: Prior Verbal Notification: Recipient Understood Notice: Yes Recipient Signature: Yes Med Rec Note Co-signed by Attending: Coverage Notice Comment: declined hh Last DP export: 07/11/20 11:56 a Patient Name: DARLENE BRODERICK Page [phone] at 1305 All edits/amendments must be made on the electronic document DICTATION DATE: 07/11/20 1305 NARCOTICS AGENT: EWA 07/11/20 1305 RPT#: [id number] DC DATE: STATUS: ADM IN [facility] [address] [place] [address] END OF REPORT
--- NOTE | 2020-07-11 16:31 | NUR ---
ALERT AND ORIENTED X4. SITTING UP IN BED. DISCHARGE INSTRUCTIONS GIVEN VERBALLY AND WRITTEN. DISCHARGE PAPERS SIGNED ON CHART. DC LT FA IV TIP INTACT. ESCORT TO RIDE VIA WHEELCHAIR. REMAINS FREE FROM INJURY.
--- NOTE | 2020-07-12 08:47 | MORECARE ---
CASE MANAGEMENT DISCHARGE SUMMARY PATIENT: DARLENE BRODERICK UNIT: [id number] ADM DATE: 07/09/20 AGE: 65 : 59 SEX: F ROOM/BED: D.2708 AUTHOR: KARTHIK GANDHI PHYSICIAN: REFERRING PHYSICIAN: JULIO CESAR MADISON MD DATE OF SERVICE: 07/12/20 Discharge Plan Patient Name: DARLENE BRODERICK Facility: [facility]:[place] : 1955 Planned Disposition: Home Anticipated Discharge Date: Discharge Date: 07/11/2020 Expected LOS: 0 Initial Reviewer: [email or web address] Initial Review Date: 07/08/2020 Generated: 07/12/20 9:46 am Comments DCP- Discharge Planning Updated by [email or web address]: Leyla Enriquez on 07/11/20 12:[address] Patient Name: DARLENE BRODERICK Admission Status: ER Admission Date: 07-09-2020 : 1955 Admission Diagnosis: Attending: JULIO CESAR CHRISTIANSON Current LOS: 2 Anticipated DC Date: Planned Disposition: Home Primary Insurance: [employer] Discharge Planning Comments: CM met with patient to complete initial dc planning assessment. CM educated patient on the CM role and verbal consent given by patient to complete assessment. CM verified patient's address, phone number, and emergency contact phone numbers. Patient lives at home and her son and grandson life with her. Pt states prior to admission she was independent with her ADL's. At discharge patient plans to return home and feels this is a safe discharge. CM discussed availability of home health, rehab services, and medical equipment. Patient denied known discharge needs at this time. Transportation provider at discharge will be her son Scott [phone] . DC IMM delivered, explained, signed by the patient, and placed in chart. Signed form also left with the patient. CM will continue to follow and will assist as needed with dc plans/needs. Optical Manufacturing Technician: Leyla Enriquez DCPIA - Discharge Planning Initial Assessment Updated by [email or web address]: Leyla Enriquez on 07/11/20 12:56 pm * Is the patient Alert and Oriented? Yes * How many steps to enter\exit or inside your home? RAMP * PCP [facility] * Pharmacy [facility] * ADLs Independent * Equipment None * List name and contact numbers for known caregivers / representatives who currently or will assist patient after discharge: SCOTT [phone] * Verbal permission to speak to the caregivers and representatives has been obtained from the patient. Yes * Community resources currently utilized None * Additional services required to return to the preadmission environment? No Coverage Notice Reviewer: [id number] Enriquez Notice Issued Date-Time: 07/09/2020 15:00 Notice Type: Medicare Outpatient Observation Notice Notice Delivered To: Patient Relationship to Patient: Case Aide Name: Delivery Method: HAND - Hand Delivered Vickie Days: Prior Verbal Notification: Recipient Understood Notice: Yes Recipient Signature: Yes Med Rec Note Co-signed by Attending: Coverage Notice Comment: [place] DELIVERED Reviewer: [id number] Enriquez Notice Issued Date-Time: 07/11/2020 12:30 Notice Type: IM Discharge Notice Notice Delivered To: Patient Relationship to Patient: Case Aide Name: Delivery Method: HAND - Hand Delivered Vickie Days: Prior Verbal Notification: Recipient Understood Notice: Yes Recipient Signature: Yes Med Rec Note Co-signed by Attending: Coverage Notice Comment: DC IMM delivered, explained, signed by the patient, and placed in chart. Signed form also left with the patient. Reviewer: [id number] Kyle Enriquez Notice Issued Date-Time: 07/11/2020 12:30 Notice Type: Patient Choice Letter Notice Delivered To: Patient Relationship to Patient: Case Aide Name: Delivery Method: HAND - Hand Delivered Vickie Days: Prior Verbal Notification: Recipient Understood Notice: Yes Recipient Signature: Yes Med Rec Note Co-signed by Attending: Coverage Notice Comment: declined hh Last DP export: 07/11/20 12:05 p Patient Name: DARLENE BRODERICK Page [id number] at 0847 All edits/amendments must be made on the electronic document DICTATION DATE: 07/12/20846 WELDER EXPERIMENTAL: EWA 07/12/20846 RPT#: [id number] DC DATE:07/11/20 STATUS: DIS IN [facility] [address] [place] [address] END OF REPORT
== END 2020-07-11 16:34 | disposition home or self-care (01) | DRG 250 ==
LOC: D.ER 13:33 → OBSVTIME 15:57 → D.M2 15:57
PROVIDERS: Family Medicine; Internal Medicine Cardiovascular Disease; ADMIT Family Medicine Adult Medicine; ATTEND Family Medicine Adult Medicine
PROC: B2111ZZ Fluoroscopy of Multiple Coronary Arteries using Low Osmolar Contrast (ICD-10-PCS; 2020-07-10)
PROC: B2151ZZ Fluoroscopy of Left Heart using Low Osmolar Contrast (ICD-10-PCS; 2020-07-10)
PROC: 02703ZZ Dilation of Coronary Artery, One Artery, Percutaneous Approach (ICD-10-PCS; principal; 2020-07-10 08:21)
PROC: 4A023N7 Measurement of Cardiac Sampling and Pressure, Left Heart, Percutaneous Approach (ICD-10-PCS; 2020-07-10 08:21)
DX: I25.119 Atherosclerotic heart disease of native coronary artery with unspecified angina pectoris (principal); I21.A1 Myocardial infarction type 2; I24.9 Acute ischemic heart disease, unspecified; M33.20 Polymyositis, organ involvement unspecified; E83.42 Hypomagnesemia; E11.51 Type 2 diabetes mellitus with diabetic peripheral angiopathy without gangrene; I10 Essential (primary) hypertension; E78.5 Hyperlipidemia, unspecified; E03.9 Hypothyroidism, unspecified; K21.9 Gastro-esophageal reflux disease without esophagitis; E66.9 Obesity, unspecified; Z68.35 Body mass index [BMI] 35.0-35.9, adult; J44.9 Chronic obstructive pulmonary disease, unspecified; I65.23 Occlusion and stenosis of bilateral carotid arteries; R00.1 Bradycardia, unspecified